=== PATIENT | male | born 1945 ===

== ENCOUNTER → 2018-08-03 | Outpatient (CLI) | payer MEDICARE, OTHER ==
[2018-08-03 14:34] LABS: Basophils # (auto) 0.1 uL; Basophils % (auto) 0.8 % (0.0-2.0); Eosinophils # (auto) 0.2 uL; Eosinophils % (auto) 3.3 % (0.0-7.0); Hematocrit 36.8 % (41.0-53.0); Hemoglobin 12.8 g/dL (13.5-17.5); Lymphocytes # (auto) 1.9 uL; Lymphocytes % (auto) 26.9 % (10.0-50.0); Mean Corpuscular Hemoglobin 33.6 pg (28.0-32.0); Mean Corpuscular Hgb Conc. 34.9 g/dL (32.0-36.0); Mean Corpuscular Volume 96.5 fL (80.0-100.0); Monocytes # (auto) 0.6 uL; Monocytes % (auto) 7.8 % (0.0-12.0); Neutrophils # (auto) 4.4 uL; Neutrophils % (auto) 61.2 % (37.0-80.0); Platelet Count (auto) 241 10^3/uL (140-450); Red Blood Cells 3.82 10^6/uL (4.5-5.90); Red Cell Distribution Width 13.5 % (11.8-14.3); White Blood Cell 7.2 10^3/uL (4.4-10.8)
[2018-08-03 14:36] LABS: Urine Bacteria NONE SEEN /hpf (None Seen); Urine Blood Negative /uL (Negative); Urine Mucus FEW (None Seen); Urine Specific Gravity 1.014 (1.001-1.035); Urine WBC 5 /hpf (0 - 3)
[2018-08-03 14:54] LABS: Albumin 3.3 g/dL (3.4-5.0); BUN/Creatinine Ratio 12.6; Calcium 7.4 mg/dL (8.5-10.1); Potassium 4.1 mmol/L (3.5-5.1)
[2018-08-03 14:56] LABS: Bilirubin, Total 0.4 mg/dL (0.2-1.0); Total Protein 6.8 g/dL (6.4-8.2)
== END | disposition home or self-care (01) ==
LOC: LAB 13:53
PROVIDERS: ATTEND Internal Medicine
DX: Z00.01 Encounter for general adult medical examination with abnormal findings (principal); R53.83 Other fatigue; E11.40 Type 2 diabetes mellitus with diabetic neuropathy, unspecified; R63.4 Abnormal weight loss; F17.200 Nicotine dependence, unspecified, uncomplicated
CPT/HCPCS: 36415; 80053; 81001; 82150; 83036; 83690; 85025; 85652

== ENCOUNTER 2024-11-11 13:55 | Inpatient (IN) | payer MEDICARE, OTHER ==
[~2024-11-11] VITALS: Ht 170.2 cm; Wt 65.8 kg
[~2024-11-11 13:55] MED LIST: FINA5TAB4 PO; FLUT50SP31 EACHNOSTRI; FURO40TA4 PO; GABA-1251 PO; INSLANTI SC; TERA5CAP58 PO; [UNRECOGNIZED DRUG - CODE] PO
--- NOTE | 2024-11-11 14:06 | ED.PDOC ---
History of Present Illness HPI Comments A 79 year old male brought in by EMS presents to the ED with a chief complaint of increased falls onset 2 days. Patient states he noticed increased falls these past few days, today he felt "jolt" that dropped him to his knees as well as "jolts" through bilateral arms. Patient is also experiencing dizziness. He states he recently had an a change in Gabapentin medication. Past medical history of DM, seizures. Denies chest pain, shortness of breath, nausea, vomiting, diarrhea, abdominal pain, headache. No other symptoms or modifying factors present at this time. Time Seen by MD: 13:54 Reviewed Notes: Medications, Allergies Information Source: Patient, Emergency Med Personnel Mode of Arrival: EMS Severity: Moderate Timing: Hours Duration: Since onset Prehospital treatment: 12 Lead EKG Past Medical History PAST MEDICAL HISTORY: DM, Seizures Surgical History: Pacemaker Family History Family History: Unknown Social History Smoker: Non-Smoker Alcohol: Denies ETOH Use Drugs: Denies Drug Use Lives In: Home Constitutional: denies: chills, diaphoresis, fatigue, fever, malaise, sweats, weakness, others EENTM: denies: blurred vision, double vision, ear bleeding, ear discharge, ear drainage, ear pain, ear ringing, eye pain, eye redness, hearing loss, mouth pain, mouth swelling, nasal discharge, nose bleeding, nose congestion, nose pain, photophobia, tearing, throat pain, throat swelling, voice changes, others Respiratory: denies: cough, hemoptysis, orthopnea, SOB at rest, shortness of breath, SOB with excertion, stridor, wheezing, others Cardiovascular: denies: chest pain, dizzy spells, diaphoresis, Dyspnea on exertion, edema, irregular heart beat, left arm pain, lightheadedness, palpitations, PND, syncope, others Gastrointestinal: denies: abdomen distended, abdominal pain, blood streaked bowels, constipated, diarrhea, dysphagia, difficulty swallowing, hematemesis, melena, nausea, poor appetite, poor fluid intake, rectal bleeding, rectal pain, vomiting, others Genitourinary: denies: burning, dysuria, flank pain, frequency, hematuria, incontinence, penile discharge, penile sore, pain, testicle pain, testicle swelling, urgency, others Neurological: denies: dizziness, fainting, headache, left sided numbness, left sided weakness, numbness, paresthesia, pre-existing deficit, right sided numbness, right sided weakness, seizure, speech problems, tingling, tremors, weakness, others Musculoskeletal: denies: back pain, gout, joint pain, joint swelling, muscle pain, muscle stiffness, neck pain, others Integumetry: denies: bruises, change in color, change in hair/nails, dryness, laceration, lesions, lumps, rash, wounds, others Allergic/Immunocompromised: denies: Difficulty Healing, Frequent Infections, Hives, Itching, others Hematologic/Lymphatic: denies: anemia, blood clots, easy bleeding, easy bruising, swollen glands, others Endocrine: denies: excessive hunger, excessive sweating, excessive thirst, excessive urination, flushing, intolerance to cold, intolerance to heat, unexp lained weight gain, unexplained weight loss, others Psychiatric: denies: anxiety, bipolar disorder, depression, hopeless, panic disorder, schizophrenia, sleepless, suicidal, others All Other Systems: Reviewed and Negative Physical Exam General Appearance: No Apparent Distress, Normal HEENT: Normal ENT Inspection, Pharynx Normal, TMs Normal Neck: Full Range of Motion, Non-Tender, Normal, Normal Inspection Respiratory: Chest Non-Tender, Lungs Clear, No Accessory Muscle Use, No Respiratory Distress, Normal Breath Sounds Cardiovascular: No Edema, No JVD, No Murmur, No Gallop, Normal Peripheral Pulse s, Other (paced rhythm) Breast Exam: Deferred Gastrointestinal: No Organomegaly, Non Tender, No Pulsatile Mass, Normal Bowel Sounds, Soft Genitalia: Deferred Pelvic: Deferred Rectal: Deferred Extremities: No calf tenderness, Normal capillary refill, Normal inspection, Normal range of motion, Non-tender, No pedal edema Musculoskeletal : Apperance: Normal Neurologic: Alert, advertising campaign manager II-XII nml as Tested, No Motor Deficits, Normal Affect, Normal Mood, No Sensory Deficits Cerebellar Function: Normal Reflexes: Normal Skin: Dry, Normal Color, Warm Lymphatic: No Adenopathy Was a procedure done? Was a procedure done?: No Differential Dx Considerations may include: Electrolyte abnormalities, infectious etiology, medication reaction X-Ray, Labs, Meds, VS Vital Signs Date Time Temp Pulse Resp B/P (MAP) Pulse Ox O2 Delivery O2 Flow Rate FiO2 11/11/24 18:03 60 14 127/73 (91) 96 11/11/24 16:00 60 13 137/67 (90) 99 11/11/24 14:50 60 11/11/24 14:39 97.6 60 12 110/59 (76) 94 97.6 11/11/24 14:39 60 12 94 Room Air* 0 21 11/11/24 14:10 98.0 60 18 126/63 (84) 98 11/11/24 13:58 70 Lab Test 11/11/24 17:39 11/11/24 15:15 11/11/24 15:05 11/11/24 14:02 Range/Units Troponin I High Sensitivity Pending 9 10 </=54 ng/L Urine Color Colorless Yellow Urine Clarity Clear Clear Urine pH 6.5 5.0-9.0 Urine Specific [place] 1.005 1.001-1.035 Urine Protein Negative Negative Urine Ketones Negative Negative Urine Blood Negative Negative /uL Urine Nitrite Negative Negative Urine Bilirubin Negative Negative Urine Urobilinogen Normal Negative mg/dL Urine Leukocyte Esterase Negative Negative /uL Urine RBC <1 0 - 3 /hpf Urine WBC <1 0 - 3 /hpf Urine Squamous Epithelial Cells None seen <5 /hpf Urine Bacteria None seen None Seen /hpf Urine Glucose Normal Normal mg/dL White Blood Count 3.1 L 4.4-10.8 10^3/uL Red Blood Count 2.96 L 4.5-5.90 10^6/uL Hemoglobin 9.5 L 13.5-17.5 g/dL Hematocrit 28.6 L 41.0-53.0 % Mean Corpuscular Volume 96.5 80.0-100.0 fL Mean Corpuscular Hemoglobin 32.0 28.0-32.0 pg Mean Corpuscular Hemoglobin Concent 33.2 32.0-36.0 g/dL Red Cell Distribution Width 14.0 11.8-14.3 % Platelet Count 168 140-450 10^3/uL Mean Platelet Volume 8.0 6.9-10.8 fL Neutrophils (%) (Auto) 47.0 37.0-80.0 % Lymphocytes (%) (Auto) 36.7 10.0-50.0 % Monocytes (%) (Auto) 9.8 0.0-12.0 % Eosinophils (%) (Auto) 5.2 0.0-7.0 % Basophils (%) (Auto) 1.3 0.0-2.0 % Neutrophils # (Auto) 1.5 L 1.6-8.6 10 ^3/uL Lymphocytes # (Auto) 1.1 0.4-5.4 10 ^3/uL Monocytes # (Auto) 0.3 0-1.3 10 ^3/uL Eosinophils # (Auto) 0.2 0-0.8 10 ^3/uL Basophils # (Auto) 0 0-0.2 10 ^3/uL Nucleated Red Blood Cells 0.2 % Sodium Level 139 136-145 mmol/L Potassium Level 4.2 3.5-5.1 mmol/L Chloride Level 100 98-107 mmol/L Carbon Dioxide Level 33 H 20-31 mmol/L Anion Gap 6 5-15 Blood Urea Nitrogen 22 9-23 mg/dL Creatinine 2.33 H 0.700-1.30 mg/dL Glomerular Filtration Rate Calc 27 >90 mL/min BUN/Creatinine Ratio 9.4 L 10.0-20.0 Serum Glucose 191 H 74-106 mg/dL Calcium Level 8.6 L 8.7-10.4 mg/dL B-Type Natriuretic Peptide 809.77 0-100 pg/mL [place] [id number] Ph: [phone] DIAGNOSTIC IMAGING Diagnostic Imaging Report : [id number] Signed PATIENT: ARNALDO ALBRECHT ACCT: [id number] UNIT: [id number] : 1945 LOC: ER ROOM / BED: / AGE / SEX: 79 / M ADM STATUS: REG ER SERVICE [id number] ORDERING PHYSICIAN: ROGER BILLINGSLEY MD PROCEDURE(s): CXRP - CHEST PORTABLE REASON: spasms ORDER NUMBER(s): [id number], ACCESSION NUMBER(s): [id number] EXAM: XY CHEST PORTABLE TECHNIQUE: Single frontal chest radiograph CLINICAL HISTORY: spasms COMPARISON: None Findings/Impression: Frontal chest radiograph demonstrates no acute osseous or superficial soft tissue abnormalities. Left chest wall dual chamber pacemaker. The trachea is midline. Cardiomegaly. No pneumothorax, pleural effusions, or consolidations. ATED BY: SUZAN SLADE DO DICTATED DATE/TIME: 11/11/241520 SIGNED BY: SUZAN SLADE DO SIGNED DATE/TIME: 11/11/241520 CC: Time of 1ST Reevaluation: 14:24 Reevaluation 1ST: Unchanged Patient Education/Counseling: Diagnosis, Treatment, Prognosis Family Education/Counseling: No Family Present Additional Information The following tests were ordered, and results were reviewed by me: BNP, BMP, CBC, TROP, TROP, TROP, UA, XY CHEST, EKG, EKG, EKG I reviewed and agreed with the following test results read by other providers: XY CHEST Independent Historian: EMS I discussed treatment and results with medical personnel, patient Departure 1 Departure Time of Disposition: 18:26 (Patient with a worsening falls and weakness. Unclear etiology. We will admit patient for further workup) Impression: Primary Impression: Frequent falls Disposition: ADMITTED INPATIENT Admit to: Med Surg Condition: Serious Critical Care Note Critical Care Time?: No Stability Stability form required: No I personally scribed for ROGER BILLINGSLEY MD ([email or web address]) on 11/11/24 at 14:06. Electronically submitted by Milagro Rincon ([email or web address]). I personally scribed for ROGER BILLINGSLEY MD ([email or web address]) on 11/11/24 at 14:13. Electronically submitted by Milagro Rincon ([email or web address]). I personally scribed for ROGER BILLINGSLEY MD (NICK) on 11/11/24 at 14:25. Electronically submitted by Milagro Rincon ([email or web address]). I personally scribed for ROGER BILLINGSLEY MD ([email or web address]) on 11/11/24 at 15:59. Electronically submitted by Milagro Rincon ([email or web address]). I personally scribed for ROGER BILLINGSLEY MD ([email or web address]) on 11/11/24 at 16:58. Electronically submitted by Milagro Rincon ([email or web address]). ROGER BILLINGSLEY MD Nov 11, 2024 14:06
[2024-11-11 14:37] LABS: Basophils # (auto) 0 10 ^3/uL (0-0.2); Basophils % (auto) 1.3 % (0.0-2.0); Eosinophils # (auto) 0.2 10 ^3/uL (0-0.8); Eosinophils % (auto) 5.2 % (0.0-7.0); Hematocrit 28.6 % (41.0-53.0); Hemoglobin 9.5 g/dL (13.5-17.5); Lymphocytes # (auto) 1.1 10 ^3/uL (0.4-5.4); Lymphocytes % (auto) 36.7 % (10.0-50.0); Mean Corpuscular Hgb Conc. 33.2 g/dL (32.0-36.0); Mean Corpuscular Volume 96.5 fL (80.0-100.0); Monocytes # (auto) 0.3 10 ^3/uL (0-1.3); Monocytes % (auto) 9.8 % (0.0-12.0); Neutrophils # (auto) 1.5 10 ^3/uL (1.6-8.6); Nucleated Red Blood Cells % 0.2 %; Platelet Count (auto) 168 10^3/uL (140-450); Red Blood Cells 2.96 10^6/uL (4.5-5.90); White Blood Cell 3.1 10^3/uL (4.4-10.8)
[2024-11-11 14:39] VITALS: PULSE 60; RESP 12; O2SAT 94
[2024-11-11 14:48] LABS: Chloride 100 mmol/L (98-107); Potassium 4.2 mmol/L (3.5-5.1); Sodium 139 mmol/L (136-145)
[2024-11-11 14:49] LABS: Anion Gap 6 (5-15)
[2024-11-11 14:54] LABS: BUN/Creatinine Ratio 9.4 (10.0-20.0); Blood Urea Nitrogen 22 mg/dL (9-23)
[2024-11-11 15:06] LABS: Calcium 8.6 mg/dL (8.7-10.4); Carbon Dioxide 33 mmol/L (20-31); Glucose 191 mg/dL (74-106)
--- NOTE | 2024-11-11 15:23 | DVH ---
EXAM: XY CHEST PORTABLE TECHNIQUE: Single frontal chest radiograph CLINICAL HISTORY: spasms COMPARISON: None Findings/Impression: Frontal chest radiograph demonstrates no acute osseous or superficial soft tissue abnormalities. Left chest wall dual chamber pacemaker. The trachea is midline. Cardiomegaly. No pneumothorax, pleural effusions, or consolidations.
[2024-11-11 15:28] LABS: Urine Bacteria None Seen /hpf (None Seen)
[2024-11-11 15:41] LABS: Urine Blood Negative /uL (Negative); Urine Clarity Clear (Clear); Urine Color Colorless (Yellow); Urine Protein, UAD Negative (Negative); Urine Specific Gravity 1.005 (1.001-1.035); Urine Urobilinogen Normal (Negative); Urine WBC <1 /hpf (0 - 3); Urine pH 6.5 (5.0-9.0)
--- NOTE | 2024-11-11 18:51 | ECG ---
[facility] Test Date: 2024-11-11 Test Time: 13:57:40 Pat Name: ARNALDO ALBRECHT Department: ER Room: 0279T Gender: M Boat Tender: STACI : 1945 Requested By: ROGER BILLINGSLEY Order Number: [id number] Reading MD: Wilbur Murrell Measurements Intervals [place] Rate: 70 P: 0 IN: 207 QRS: 44 QRSD: 171 T: 212 QT: 519 QTc: 561 Interpretive Statements Atrial-paced rhythm IVCD, consider atypical LBBB Electronically Signed On 11-14-2024 13:04:49 PST by Wilbur Murrell Please click the below link to view image of tracing.
--- NOTE | 2024-11-11 18:51 | ECG ---
[facility] Test Date: 2024-11-11 Test Time: 14:46:38 Pat Name: ARNALDO ALBRECHT Department: ED Room: 0279T Gender: M Fur Puller: HARIS : 1945 Requested By: ROGER BILLINGSLEY Order Number: [id number] Reading MD: Wilbur Murrell Measurements Intervals [place] Rate: 60 P: 0 LA: 262 QRS: -48 QRSD: 179 T: 130 QT: 537 QTc: 537 Interpretive Statements Atrial-paced complexes Prolonged LA interval Left bundle branch block Baseline wander in lead(s) V1 Electronically Signed On 11-14-2024 13:04:56 PST by Wilbur Murrell Please click the below link to view image of tracing.
[2024-11-11] MEDS ORDERED: DEXTROSE (50%) 50ML SYRG IV PRN (20:00)
[2024-11-11] MEDS ORDERED: HYDROcodone-ACET 5/325MG TAB PO PRN (20:00)
[2024-11-11] MEDS ORDERED: ONDANSETRON HCL 4 MG/2 ML VIAL IV PRN (20:00)
[2024-11-11] MEDS ORDERED: DOCUSATE SOD 100 MG CAP PO PRN (20:00)
[2024-11-11] MEDS ORDERED: hydrALAZINE HCL 20 MG/ML VL IV PRN (20:00)
[2024-11-11] MEDS ORDERED: ACETAMINOPHEN 325 MG TAB PO PRN (20:00)
[2024-11-11 20:51] VITALS: PULSE 60; O2SAT 97
[2024-11-11] MEDS: ATORVASTATIN 20 MG TAB PO SCH (21:31)
[2024-11-11] MEDS: SODIUM CHLORIDE 0.9% 1,000 ML IV SCH (21:34)
[2024-11-11] MEDS: InsuLIN REG 1unit/0.01ml Soln (100units/ml) SC SCH (22:00)
[2024-11-11] MEDS: ACCU-CHEK COMFORT CURVE STRIP VI SCH (22:17)
--- NOTE | 2024-11-11 22:21 | DVHHP2 ---
History of Present Illness Reason for Visit: Generalized weakness History of Present Illness The patient is a 79-year-old male with past medical history of diabetes mellitus, HLD, and seizure who [place] [facility] [place] of frequent fall at home. Patient reports increased fall for the past few days, generalized weakness, dropping things from his arms without control, getting worse that he decided to come to the ED. patient was seen and evaluated in the ED, laboratory data shows WBC 3.1, hemoglobin 9.5, hematocrit 28.6, platelets 168, sodium 139, potassium 4.2, BUN 22, creatinine 2.33, GFR 27, glucose 191, troponin 10, blood pressure 127/73, heart rate 60, temperature 97.6 F, O2 saturation 96% on room air. Please see medication orders section in the computer. On my assessment, patient denied chest pain, no headache, no dizziness, no loss of consciousness, no diarrhea, no nausea, no vomiting, no fever, no chills. Patient was admitted for further evaluation and medical management. Past Medical History DM, HLD, Seizures Past Surgical History Pacemaker Family History Reviewed, noncontributory to the management of this case. Past Social History The patient lives at home, denies smoking, alcohol or illicit drugs abuse. Review of Systems Constitutional: Yes: Weakness; No: Fever, Chills, Sweats, Malaise, Other Eyes: No: Pain, Vision change, Conjunctivae inflammation, Eyelid inflammation, Other, Redness ENT: No: Ear pain, Ear discharge, Nose pain, Nose discharge, Nose congestion, Mouth pain, Mouth swelling, Throat pain, Throat swelling, Other Respiratory: No: Cough, Dry, Shortness of breath, SOB with excertion, Wheezing, Hemoptysis, Pleuritic Pain, Sputum, Wheezing, Other Cardiovascular: No: Chest Pain, Palpitations, Orthopnea, Paroxysmal Noc. Dyspnea, Edema, Lt Headedness, Other Gastrointestinal: No: Nausea, Vomiting, Abdominal Pain, Diarrhea, Constipation, Melena, Hematochezia, Other Genitourinary: No Dysuria, No Frequency, No Incontinence, No Hematuria, No Retention, No Other Musculoskeletal: other (Joint to weakness); No: neck pain, shoulder pain, arm pain, back pain, hand pain, leg pain, foot pain Skin: No: Rash, Lesions, Jaundice, Bruising, Other Neurological: No: Weakness, Numbness, Incoordination, Change in speech, Confusion, Seizures, Other Allergies: Coded Allergies: Ciprofloxacin (Verified Allergy, Unknown, 11/11/24) Peanut Oil (Verified Allergy, Unknown, 11/11/24) Peanut-containing Drug Products (Verified Allergy, Unknown, 11/11/24) Medications Current Medications Medications Dose Ordered Sig/[place] Route Start Time Stop Time Status Last Admin Dose Admin Famotidine 20 mg DAILY IV 11/12/24 10:00 Aspirin 81 mg DAILY PO 11/12/24 10:00 Diagnostic Test (Pha) 1 strip ACHS 11/11/24 22:00 11/11/24 22:17 1 STRIP Insulin Human Regular HS SC 11/11/24 22:00 Insulin Human Regular AC SC 11/12/24 07:00 Dextrose 50 ml UD PRN IV 11/11/24 20:00 Sodium Chloride 1,000 ml @ 60 mls/hr [id number] IV 11/11/24 20:00 11/11/24 21:34 60 MLS/HR Acetaminophen/ Hydrocodone Bitart 1 tab Q4HP PRN PO 11/11/24 20:00 Ondansetron HCl 4 mg Q4HP PRN IV 11/11/24 20:00 Docusate Sodium 100 mg BIDPRN PRN PO 11/11/24 20:00 Acetaminophen 650 mg Q6HP PRN PO 11/11/24 20:00 Hydralazine HCl 10 mg Q6HP PRN IV 11/11/24 20:00 Atorvastatin Calcium 10 mg HS PO 11/11/24 22:00 Exam Vital Signs Vital Signs Date Time Temp Pulse Resp B/P (MAP) Pulse Ox O2 Delivery O2 Flow Rate FiO2 11/11/24 22:02 60 12 149/89 (109) 97 11/11/24 20:51 Room Air* 0 21 11/11/24 19:30 97.6 97.6 General Appearance: Alert, Oriented X3, Cooperative, No acute distress HEENT: Atraumatic, PERRLA, EOMI, Mucous membr. moist/pink Respiratory: Clear to auscultation, Normal air movement Cardiovascular: Regular rate, Normal S1, Normal S2, No murmurs Abdominal: Normal bowel sounds, Soft, No tenderness, No hepatospenomegaly, No masses Extremities: No clubbing, No cyanosis, No edema, Normal pulses, No tenderness/swelling Skin: No rashes, No breakdown, No significant lesion Neuro: Normal speech, Normal tone, Sensation intact, Cranial nerves 3-12 NL, Reflexes 2+, Other (Generalized weakness) Psych/Mental Status: Mental status NL, Mood NL Labs/Xrays Labs Test 11/11/24 21:43 11/11/24 17:39 11/11/24 15:15 11/11/24 14:02 Range/Units POC Glucose 96 70-106 mg/dl Troponin I High Sensitivity 10 </=54 ng/L Urine Color Colorless Yellow Urine Clarity Clear Clear Urine pH 6.5 5.0-9.0 Urine Specific [place] 1.005 1.001-1.035 Urine Protein Negative Negative Urine Ketones Negative Negative Urine Blood Negative Negative /uL Urine Nitrite Negative Negative Urine Bilirubin Negative Negative Urine Urobilinogen Normal Negative mg/dL Urine Leukocyte Esterase Negative Negative /uL Urine RBC <1 0 - 3 /hpf Urine WBC <1 0 - 3 /hpf Urine Squamous Epithelial Cells None seen <5 /hpf Urine Bacteria None seen None Seen /hpf Urine Glucose Normal Normal mg/dL White Blood Count 3.1 L 4.4-10.8 10^3/uL Red Blood Count 2.96 L 4.5-5.90 10^6/uL Hemoglobin 9.5 L 13.5-17.5 g/dL Hematocrit 28.6 L 41.0-53.0 % Mean Corpuscular Volume 96.5 80.0-100.0 fL Mean Corpuscular Hemoglobin 32.0 28.0-32.0 pg Mean Corpuscular Hemoglobin Concent 33.2 32.0-36.0 g/dL Red Cell Distribution Width 14.0 11.8-14.3 % Platelet Count 168 140-450 10^3/uL Mean Platelet Volume 8.0 6.9-10.8 fL Neutrophils (%) (Auto) 47.0 37.0-80.0 % Lymphocytes (%) (Auto) 36.7 10.0-50.0 % Monocytes (%) (Auto) 9.8 0.0-12.0 % Eosinophils (%) (Auto) 5.2 0.0-7.0 % Basophils (%) (Auto) 1.3 0.0-2.0 % Neutrophils # (Auto) 1.5 L 1.6-8.6 10 ^3/uL Lymphocytes # (Auto) 1.1 0.4-5.4 10 ^3/uL Monocytes # (Auto) 0.3 0-1.3 10 ^3/uL Eosinophils # (Auto) 0.2 0-0.8 10 ^3/uL Basophils # (Auto) 0 0-0.2 10 ^3/uL Nucleated Red Blood Cells 0.2 % Sodium Level 139 136-145 mmol/L Potassium Level 4.2 3.5-5.1 mmol/L Chloride Level 100 98-107 mmol/L Carbon Dioxide Level 33 H 20-31 mmol/L Anion Gap 6 5-15 Blood Urea Nitrogen 22 9-23 mg/dL Creatinine 2.33 H 0.700-1.30 mg/dL Glomerular Filtration Rate Calc 27 >90 mL/min BUN/Creatinine Ratio 9.4 L 10.0-20.0 Serum Glucose 191 H 74-106 mg/dL Calcium Level 8.6 L 8.7-10.4 mg/dL B-Type Natriuretic Peptide 809.77 0-100 pg/mL PATIENT: ARNALDO ALBRECHT ACCT: [id number] UNIT: [id number] : 1945 LOC: ER ROOM / BED: / AGE / SEX: 79 / M ADM STATUS: REG ER SERVICE 5000 ORDERING PHYSICIAN: ROGER BILLINGSLEY MD PROCEDURE(s): CXRP - CHEST PORTABLE REASON: spasms ORDER NUMBER(s): [id number], ACCESSION NUMBER(s): [id number] EXAM: XY CHEST PORTABLE TECHNIQUE: Single frontal chest radiograph CLINICAL HISTORY: spasms COMPARISON: None Findings/Impression: Frontal chest radiograph demonstrates no acute osseous or superficial soft tissue abnormalities. Left chest wall dual chamber pacemaker. The trachea is midline. Cardiomegaly. No pneumothorax, pleural effusions, or consolidations. Assessment/Plan Assessment/Plan Frequent falls Acute on chronic renal failure Anemia, unspecified Diabetes mellitus with hyperglycemia Generalized weakness Plan 1. Admit to telemetry unit 2. Breathing treatment 3. Pain control management 4. Management of fluids and electrolytes 5. Consultation for hospitalist 6. Diagnostic tests chest x-ray 7. DVT prophylaxis on SCDs 8. Repeat labs CBC, CMP in a.m. 9. Continue with current medical management 10. Treatment plan discussed with patient and RN. Patient verbalized understanding. Plan discussed with: Patient, Other (RN) My Orders Orders - LINCOLN CUNNINGHAM DNP Procedure Category Date Status Time Consistent DIET 11/12/24 Transmitted Carb(Ccho)Diabetes Breakfast Famotidine Injection PHA 11/12/24 In Process (Pepcid Injection) 10:00 Aspirin Tablet PHA 11/12/24 In Process 10:00 *Dr. Keshawn Donnelly CONS 11/11/24 Transmitted -[place] 19:55 Glucose Blood PHA 11/11/24 In Process (Accu-Chek Comfort 22:00 Insulin R (Human) PHA 11/11/24 In Process (Insulin R) 22:00 Insulin R (Human) PHA 11/12/24 In Process (Insulin R) 07:00 Dextrose 50% Syringe PHA 11/11/24 In Process 20:00 Allergies FRANCOISE 11/11/24 In Process 19:55 Code Status CODE 11/11/24 Transmitted 19:55 Sodium Chloride 0.9% PHA 11/11/24 In Process 20:00 Oxygen Per Hour RT 11/11/24 Transmitted 19:55 Hydrocodone-Acet PHA 11/11/24 In Process 5/325mg Tab ([place] 20:00 Ondansetron Hcl PHA 11/11/24 In Process (Zofran) 20:00 Docusate Sodium PHA 11/11/24 In Process Capsule (Colace 20:00 Fall Risk Precautions FRANCOISE 11/11/[address] 19:55 Complete Blood Count LAB 11/12/24 Verified 04:00 Comprehensive LAB 11/12/24 Verified Metabolic Panel 04:00 Condition: Serious FRANCOISE 11/11/24 In Process 19:55 Acetaminophen Tablet PHA 11/11/24 In Process (Tylenol Tablet) 20:00 Sequential FRANCOISE 11/11/24 In Process Compression Device Hydralazine Injection PHA 11/11/24 In Process (Apresoline Inject 20:00 Atorvastatin (Lipitor) PHA 11/11/24 In Process 22:00 Admit ADMIT 11/11/24 Verified 22:20 Nitroglycerin PHA 11/11/24 Verified Sublingual (Ntrostat 22:30 Morphine Sulfate PHA 11/11/24 Verified Injection 22:30 Notify Of Changes [facility] 11/11/24 Verified From Base 22:20 Polysomnographic Technician For [facility] 11/11/24 Verified 24 Hours 22:20 Emergency Dysrhythmia FRANCOISE 11/11/24 Verified Protocol 22:20 Rhythm Strips Once FRANCOISE 11/11/24 Verified Every Shift 22:20 Oxygen By Nasal RT 11/11/24 Verified Cannula 22:20 Problem List: (1) Frequent falls (2) Generalized weakness (3) Acute on chronic renal failure (4) Anemia, unspecified (5) Diabetes mellitus with hyperglycemia Date of Service: Nov 11, 2024 Billing Provider: LINCOLN CUNNINGHAM DNP Common Visit Codes: 38000-[id number] INP/OBS CARE (HIGH) LINCOLN CUNNINGHAM DNP Nov 11, 2024 22:21
[2024-11-11] MEDS ORDERED: NITROGLYCERIN 0.4 MG SL TAB SL PRN (22:30)
[2024-11-11] MEDS ORDERED: MORPHINE SULFATE INJ 2 MG/ml SYRG IV PRN (22:30)
[2024-11-11 23:52] VITALS: PULSE 60; RESP 16; O2SAT 95
[2024-11-12] VITALS (8 sets, daily range): BP systolic 112–150; BP diastolic 63–96; PULSE 58–60; RESP 16–18; TEMP 97.8–98.2; O2SAT 93–99
[2024-11-12] MEDS: InsuLIN REG 1unit/0.01ml Soln (100units/ml) SC SCH (05:18)
[2024-11-12 05:45] LABS: Basophils # (auto) 0 10 ^3/uL (0-0.2); Basophils % (auto) 1.1 % (0.0-2.0); Eosinophils # (auto) 0.2 10 ^3/uL (0-0.8); Eosinophils % (auto) 4.5 % (0.0-7.0); Hematocrit 30.6 % (41.0-53.0); Hemoglobin 10.2 g/dL (13.5-17.5); Lymphocytes # (auto) 1.3 10 ^3/uL (0.4-5.4); Lymphocytes % (auto) 33.4 % (10.0-50.0); Mean Corpuscular Hemoglobin 32.1 pg (28.0-32.0); Mean Corpuscular Hgb Conc. 33.3 g/dL (32.0-36.0); Mean Corpuscular Volume 96.3 fL (80.0-100.0); Monocytes # (auto) 0.5 10 ^3/uL (0-1.3); Monocytes % (auto) 11.5 % (0.0-12.0); Neutrophils % (auto) 49.5 % (37.0-80.0); Nucleated Red Blood Cells % 0.2 %; Platelet Count (auto) 166 10^3/uL (140-450); Red Blood Cells 3.17 10^6/uL (4.5-5.90); Red Cell Distribution Width 14.1 % (11.8-14.3)
[2024-11-12 06:09] LABS: Alanine Aminotransferase 15 U/L (7-40); Albumin 3.8 g/dL (3.2-4.8); Alkaline Phosphatase 103 U/L (46-116); Anion Gap 7 (5-15); Aspartate Aminotransferase 22 U/L (13-40); BUN/Creatinine Ratio 8.6 (10.0-20.0); Bilirubin, Total 0.4 mg/dL (0.2-1.0); Blood Urea Nitrogen 19 mg/dL (9-23); Carbon Dioxide 31 mmol/L (20-31); Chloride 105 mmol/L (98-107); Glucose 86 mg/dL (74-106); Potassium 4.1 mmol/L (3.5-5.1); Sodium 143 mmol/L (136-145); Total Protein 6.4 g/dL (5.7-8.2)
[2024-11-12] MEDS: ASPirin 81 mg TAB PO SCH (09:06)
[2024-11-12] MEDS: FAMOTIDINE (10MG/ML) 2ML VL IV SCH (09:06)
--- NOTE | 2024-11-12 10:23 | DVHINCON2 ---
Date of service: Nov 12, 2024 Referring Physician Florentin Stewart, nurse practitioner Reason for Consultation Acute kidney injury History of Present Illness Patient is a 79-year-old male with past medical history of DM, osteoarthritis, chronic low back pain and seizures Seizures is admitted for generalized weakness status post fall three days ago. On admission patient found to have elevated creatinine nephrology is consulted for acute kidney injury Past Medical History PAST MEDICAL HISTORY: DM, Seizures, osteoarthritis, chronic low back pain Past Surgical History Surgical History: Pacemaker Allergies: Coded Allergies: Ciprofloxacin (Verified Allergy, Unknown, 11/11/24) Peanut Oil (Verified Allergy, Unknown, 11/11/24) Peanut-containing Drug Products (Verified Allergy, Unknown, 11/11/24) Current Medications Current Medications Medications (Trade) Dose Ordered Sig/Lisbet Route PRN Reason Start Time Stop Time Status Last Admin Famotidine (Pepcid Injection) 20 mg DAILY IV 11/12/24 10:00 11/12/24 09:06 Aspirin 81 mg DAILY PO 11/12/24 10:00 11/12/24 09:06 Diagnostic Test (Pha) (Accu-Chek Comfort Curve T) 1 strip ACHS 11/11/24 22:00 11/12/24 12:19 DC 11/12/24 05:18 Insulin Human Regular (InsuLIN R) HS SC 11/11/24 22:00 11/12/24 12:19 DC Insulin Human Regular (InsuLIN R) AC SC 11/12/24 07:00 11/12/24 12:19 DC Dextrose 50 ml UD PRN IV Blood Sugar LESS THAN 60 11/11/24 20:00 Sodium Chloride 1,000 ml @ 60 mls/hr [id number] IV 11/11/24 20:00 11/11/24 21:34 Acetaminophen/ Hydrocodone Bitart ([place] 5/325MG Tab) 1 tab Q4HP PRN PO MODERATE PAIN (4-6 PAIN SCALE) 11/11/24 20:00 Ondansetron HCl (Zofran) 4 mg Q4HP PRN IV NAUSEA / VOMITING 11/11/24 20:00 Docusate Sodium (Colace Capsule) 100 mg BIDPRN PRN PO FOR CONSTIPATION 11/11/24 20:00 Acetaminophen (Tylenol Tablet) 650 mg Q6HP PRN PO PAIN SCALE 1-3 OR TEMP>100.4 11/11/24 20:00 Hydralazine HCl (Apresoline Injection) 10 mg Q6HP PRN IV SBP>150 11/11/24 20:00 Atorvastatin Calcium (Lipitor) 10 mg HS PO 11/11/24 22:00 Nitroglycerin (Ntrostat Sublingual) 0.4 mg Q5MINP PRN SL FOR CHEST PAIN 11/11/24 22:30 Morphine Sulfate 2 mg Q30M PRN IV FOR CHEST PAIN 11/11/24 22:30 Family History: FH: heart attack G8 FATHER, , Age: 60 years and older Review of Systems All 12 item review of systems reviewed with the patient nonsignificant except what is mentioned in the history of present illness H&P Exam Vital Signs/I&O Vital Sign Date Time Temp Pulse Resp B/P (MAP) Pulse Ox O2 Delivery O2 Flow Rate FiO2 11/12/24 09:00 98.0 60 18 135/63 (87) 94 98.0 11/12/24 07:45 Room Air* 0 21 Intake and Output 11/11/24 11/12/24 19:00 07:00 Intake Total 200 ml Output Total 1400 ml Balance -1200 ml Intake Oral 200 ml Output Urine Total 1400 ml Physical Exam Patient is awake alert Lungs clear to auscultation bilaterally Cardiac exam regular rate and rhythm GI soft nontender was normal Extremities no clubbing cyanosis or edema Neuro nonfocal Labs/Diagnostic Data Labs/Diagnostic Data Laboratory Tests Test 11/12/24 11:17 11/12/24 05:16 11/12/24 04:39 11/11/24 21:43 Range/Units Prothrombin Time 11.5 9.3-11.8 sec Prothrombin Time INR 1.09 0.9-1.15 POC Glucose 84 96 70-106 mg/dl White Blood Count 4.0 #L 4.4-10.8 10^3/uL Red Blood Count 3.17 L 4.5-5.90 10^6/uL Hemoglobin 10.2 L 13.5-17.5 g/dL Hematocrit 30.6 L 41.0-53.0 % Mean Corpuscular Volume 96.3 80.0-100.0 fL Mean Corpuscular Hemoglobin 32.1 H 28.0-32.0 pg Mean Corpuscular Hemoglobin Concent 33.3 32.0-36.0 g/dL Red Cell Distribution Width 14.1 11.8-14.3 % Platelet Count 166 140-450 10^3/uL Mean Platelet Volume 8.2 6.9-10.8 fL Neutrophils (%) (Auto) 49.5 37.0-80.0 % Lymphocytes (%) (Auto) 33.4 10.0-50.0 % Monocytes (%) (Auto) 11.5 0.0-12.0 % Eosinophils (%) (Auto) 4.5 0.0-7.0 % Basophils (%) (Auto) 1.1 0.0-2.0 % Neutrophils # (Auto) 2.0 1.6-8.6 10 ^3/uL Lymphocytes # (Auto) 1.3 0.4-5.4 10 ^3/uL Monocytes # (Auto) 0.5 0-1.3 10 ^3/uL Eosinophils # (Auto) 0.2 0-0.8 10 ^3/uL Basophils # (Auto) 0 0-0.2 10 ^3/uL Nucleated Red Blood Cells 0.2 % Sodium Level 143 136-145 mmol/L Potassium Level 4.1 3.5-5.1 mmol/L Chloride Level 105 98-107 mmol/L Carbon Dioxide Level 31 20-31 mmol/L Anion Gap 7 5-15 Blood Urea Nitrogen 19 9-23 mg/dL Creatinine 2.22 H 0.700-1.30 mg/dL Glomerular Filtration Rate Calc 29 >90 mL/min BUN/Creatinine Ratio 8.6 L 10.0-20.0 Serum Glucose 86 # 74-106 mg/dL Hemoglobin A1c 8.6 H <5.7 % A1C Calcium Level 9.0 8.7-10.4 mg/dL Phosphorus Level 4.2 2.4-5.1 mg/dL Magnesium Level 2.3 1.6-2.6 mg/dL Total Bilirubin 0.4 0.2-1.0 mg/dL Aspartate Amino Transferase (AST) 22 13-40 U/L Alanine Aminotransferase (ALT) 15 7-40 U/L Alkaline Phosphatase 103 46-116 U/L Creatine Kinase 51 46-171 U/L Total Protein 6.4 5.7-8.2 g/dL Albumin 3.8 3.2-4.8 g/dL Thyroid Stimulating Hormone (TSH) 0.65 0.55-4.78 uIU/mL Test 11/11/24 18:39 11/11/24 17:39 11/11/24 15:15 11/11/24 15:05 Range/Units POC Glucose 209 H 70-106 mg/dl Troponin I High Sensitivity 10 9 </=54 ng/L Urine Color Colorless Yellow Urine Clarity Clear Clear Urine pH 6.5 5.0-9.0 Urine Specific [place] 1.005 1.001-1.035 Urine Protein Negative Negative Urine Ketones Negative Negative Urine Blood Negative Negative /uL Urine Nitrite Negative Negative Urine Bilirubin Negative Negative Urine Urobilinogen Normal Negative mg/dL Urine Leukocyte Esterase Negative Negative /uL Urine RBC <1 0 - 3 /hpf Urine WBC <1 0 - 3 /hpf Urine Squamous Epithelial Cells None seen <5 /hpf Urine Bacteria None seen None Seen /hpf Urine Glucose Normal Normal mg/dL Test 11/11/24 14:02 Range/Units White Blood Count 3.1 L 4.4-10.8 10^3/uL Red Blood Count 2.96 L 4.5-5.90 10^6/uL Hemoglobin 9.5 L 13.5-17.5 g/dL Hematocrit 28.6 L 41.0-53.0 % Mean Corpuscular Volume 96.5 80.0-100.0 fL Mean Corpuscular Hemoglobin 32.0 28.0-32.0 pg Mean Corpuscular Hemoglobin Concent 33.2 32.0-36.0 g/dL Red Cell Distribution Width 14.0 11.8-14.3 % Platelet Count 168 140-450 10^3/uL Mean Platelet Volume 8.0 6.9-10.8 fL Neutrophils (%) (Auto) 47.0 37.0-80.0 % Lymphocytes (%) (Auto) 36.7 10.0-50.0 % Monocytes (%) (Auto) 9.8 0.0-12.0 % Eosinophils (%) (Auto) 5.2 0.0-7.0 % Basophils (%) (Auto) 1.3 0.0-2.0 % Neutrophils # (Auto) 1.5 L 1.6-8.6 10 ^3/uL Lymphocytes # (Auto) 1.1 0.4-5.4 10 ^3/uL Monocytes # (Auto) 0.3 0-1.3 10 ^3/uL Eosinophils # (Auto) 0.2 0-0.8 10 ^3/uL Basophils # (Auto) 0 0-0.2 10 ^3/uL Nucleated Red Blood Cells 0.2 % Sodium Level 139 136-145 mmol/L Potassium Level 4.2 3.5-5.1 mmol/L Chloride Level 100 98-107 mmol/L Carbon Dioxide Level 33 H 20-31 mmol/L Anion Gap 6 5-15 Blood Urea Nitrogen 22 9-23 mg/dL Creatinine 2.33 H 0.700-1.30 mg/dL Glomerular Filtration Rate Calc 27 >90 mL/min BUN/Creatinine Ratio 9.4 L 10.0-20.0 Serum Glucose 191 H 74-106 mg/dL Calcium Level 8.6 L 8.7-10.4 mg/dL Troponin I High Sensitivity 10 </=54 ng/L B-Type Natriuretic Peptide 809.77 0-100 pg/mL Assessment Acute kidney injury superimposed Chronic Kidney Disease secondary hemodynamic mediated Generalized weakness Diabetes mellitus type 2 Hypertension Seizure disorder Anemia of chronic of Kidney disease Recommendations Closely monitor fluid and electrolytes Avoid nephrotoxic medications Castro catheter Strict I&Os Check urine electrolytes Check kidney ultrasound sliding scale Blood pressure control Check CPK We will continue to follow Patient seen and examined by myself I discussed my plan of care with the patient, his fiancee and primary nurse at the bedside I would like to thank Florentin for the consult, will follow up Plan discussed with: Patient AC RESENDEZ MD Nov 12, 2024 10:22
--- NOTE | 2024-11-12 10:58 | DVH ---
CT HEAD WITHOUT CONTRAST INDICATION: ro stroke EXAM DATE: 11/12/2024 09:54 AM COMPARISON: None RADIATION DOSE: CTDIvol: 53.81 mGy, DLP: 862.75 mGy*cm PROCEDURE: CT scans of the head were obtained from the vertex to the skull base. Sagittal and coronal reconstructions were provided. All CT scans at this medical facility are performed using dose modulation techniques as appropriate t o a performed exam including the following: Automated exposure control was utilized; adjustment of th e MA and/or KV according to patient size; and use of iterative reconstruction technique. FINDINGS: There is sulcal and ventricular prominence. The brain otherwise shows normal morphology a nd montgomery-white matter differentiation, without intracranial hemorrhage, extra-axial fluid collection, mass effect or acute large vessel infarct.The basal cisterns are patent. The skull and visible facial bones are intact. The paranasal sinuses, mastoid air cells and middle ear cavities are well-aerated. The soft tissues of the scalp are unremarkable. IMPRESSION: No acute intracranial abnormality.
[2024-11-12 11:17] LABS: Phosphorus 4.2 mg/dL (2.4-5.1)
--- NOTE | 2024-11-12 11:47 | DVHPNRES ---
Progress Note Date Seen: Nov 12, 2024 Resident Creating Document: JESU MEHTA RESIDENT Medical Necessity Reason Pt with a Central, PICC or Fol: No Subjective Review of Systems The patient is an 79-year-old male with a past medical history of diabetes mellitus, hyperlipidemia , and a pacemaker, who presented to the Emergency Department for evaluation of frequent falls at home. The patient reports an increased frequency of falls over the past few days, accompanied by generalized weakness and difficulty holding onto objects, resulting in him dropping items from his arms. He states he never lost consciousness during these episodes. The patient mentions a history of an episode of weakness leading to one of the falls. He has a known history of myoclonic seizures. 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 Additionally, his recent HbA1c was noted to be elevated. He is currently being managed by nephrology due to an elevated creatinine level, suggesting acute kidney injury superimposed on chronic kidney disease. On examination, the patient appears stable and denies any acute symptoms, including chest pain, headache, dizziness, or changes in mental status. Past Medical History: Diabetes mellitus Hyperlipidemia Myoclonic seizures Pacemaker insertion CKD Past Surgical History: Pacemaker placement Family History: No significant contributions to the management of this case. Social History: The patient lives at home. Denies smoking, alcohol use, or illicit drug use. Review of systems Constitutional: Yes: Weakness, No: Fever, Chills, Sweats Eyes: No: Pain, Vision change, Conjunctivae inflammation, Eyelid inflammation, Other, Redness ENT: No: Ear pain, Ear discharge, Nose pain, Nose discharge, Nose congestion, Mouth pain, Mouth swelling, Throat pain, Throat swelling, Other Respiratory: No Wheezing, Hemoptysis, Pleuritic Pain, Sputum, Wheezing, Other Cardiovascular: No: Chest Pain, Palpitations, Orthopnea, Paroxysmal Noc. Dyspnea, Edema, Lt Headedness, Other Gastrointestinal: No: Nausea, Vomiting, Abdominal Pain, Diarrhea, Constipation, Melena, Hematochezia, Other Musculoskeletal: No: other, neck pain, shoulder pain, arm pain, back pain, hand pain, leg pain, foot pain Neurological:; No: Weakness, Numbness,Change in speech, Confusion, Seizures Patient reports: No new complaints Objective vital signs Vital Sign Date Time Temp Pulse Resp B/P (MAP) Pulse Ox O2 Delivery O2 Flow Rate FiO2 11/12/24 09:00 98.0 60 18 135/63 (87) 94 98.0 11/12/24 07:45 Room Air* 0 21 Total Intake and Output 11/11/24 11/11/24 11/12/24 15:00 23:00 07:00 Intake Total 200 ml Output Total 1400 ml Balance -1200 ml medications Current Medications Medications Dose Ordered Sig/Lisbet Route Start Time Stop Time Status Last Admin Dose Admin Famotidine 20 mg DAILY IV 11/12/24 10:00 11/12/24 09:06 20 MG Aspirin 81 mg DAILY PO 11/12/24 10:00 11/12/24 09:06 81 MG Diagnostic Test (Pha) 1 strip ACHS 11/11/24 22:00 11/12/24 05:18 1 STRIP Insulin Human Regular HS SC 11/11/24 22:00 Insulin Human Regular AC SC 11/12/24 07:00 Dextrose 50 ml UD PRN IV 11/11/24 20:00 Sodium Chloride 1,000 ml @ 60 mls/hr [id number] IV 11/11/24 20:00 11/11/24 21:34 60 MLS/HR Acetaminophen/ Hydrocodone Bitart 1 tab Q4HP PRN PO 11/11/24 20:00 Ondansetron HCl 4 mg Q4HP PRN IV 11/11/24 20:00 Docusate Sodium 100 mg BIDPRN PRN PO 11/11/24 20:00 Acetaminophen 650 mg Q6HP PRN PO 11/11/24 20:00 Hydralazine HCl 10 mg Q6HP PRN IV 11/11/24 20:00 Atorvastatin Calcium 10 mg HS PO 11/11/24 22:00 Nitroglycerin 0.4 mg Q5MINP PRN SL 11/11/24 22:30 Morphine Sulfate 2 mg Q30M PRN IV 11/11/24 22:30 Examination Examination General Appearance: Frail appearance, Alert, Oriented X3, Cooperative, No acute distress Respiratory: Clear to auscultation, Normal air movement Cardiovascular: Regular rate, Normal S1, Normal S2 Abdominal: Normal bowel sounds Extremities: No cyanosis, No edema, Normal pulses, No tenderness/swelling Skin: No rashes, No breakdown Neuro: Normal speech, Strength at 5/5 X4 ext, Normal tone, Sensation intact, Cranial nerves 3-12 NL, Reflexes 2+ Psych/Mental Status: Mental status NL, Mood NL laboratory and microbiology Laboratory Tests 11/12/24 04:39 Test 11/12/24 04:39 Range/Units Serum Glucose 86 # 74-106 mg/dL Problem List/Assessment/Plan Problem List/Assessment/Plan Presyncope likely due to dehydration? Electrolyte imbalances? Heart failure with a reduced ejection fraction 15 % BNP 800 -echocardiogram is pending -cardiology consult, pending Acute kidney injury on chronic kidney disease stage IV, creatinine 2.22, GFR 29 -nephrology on board -Castro catheter -kidney ultrasound, pending - blood pressure control Anemia of chronic kidney disease, normocytic normochromic, hemoglobin 10.2 -nephrology on board Diabetes mellitus with hyperglycemia, hemoglobin A1c 8.6 -insulin regular protocol -dextrose 50 mL protocol History of pacemaker implantation -aspirin 81 mg Atorvastatin 10 mg p.o. Secondary hypertension likely due to chronic kidney disease -hydralazine 10 mg q.6 p.r.n. -monitor Mild hypocalcemia, resolved Case discussed with Dr. Alexander Goals of care discussed with the patient for 31 minutes Code status: Full code Plan discussed with: Patient, Spouse My Orders My Orders Orders - JESU MEHTA RESIDENT Procedure Category Date Status Time Drug Screen LAB 11/12/24 Logged 09:36 Vitamin B12 LAB 11/12/24 In Process 09:36 Folate (Folic Acid) LAB 11/12/24 In Process 09:36 Prothrombin Time W/ LAB 11/12/24 In Process INR 09:36 Covid19 Antigen Yani LAB 11/12/24 Logged Rapid Influenza A&B LAB 11/12/24 Logged 09:36 Pt Request For Service PT 11/12/24 Logged 09:36 Orthostatic Vital ORDERS 11/12/24 Transmitted Signs 09:[address] 11/12/24 Resulted 09:36 Carotid Duplx W Color US 11/12/24 Taken DOP 09:36 Date of Service: Nov 12, 2024 Billing Provider: ELIAS ALEXANDER MD Common Visit Codes: 28673-[id number] INP/OBS CARE(HIGH) Secondary Visit Codes: 67454-IJAGCJIA CARE PLAN 30 MINUTES JESU MEHTA RESIDENT Nov 12, 2024 11:47 ELIAS ALEXANDER MD Nov 14, 2024 20:34
[2024-11-12 12:00] LABS: INR 1.09 (0.9-1.15); Prothrombin Time 11.5 sec (9.3-11.8)
[2024-11-12] MEDS ORDERED: CARV3.1240 PO (12:24)
[2024-11-12] MEDS ORDERED: GABA-1250 PO (12:24)
[2024-11-12] MEDS ORDERED: HYDR1TAB97 PO (12:24)
[2024-11-12] MEDS ORDERED: ASPI-325 PO (12:24)
[2024-11-12] MEDS ORDERED: CLOP75TA70 PO (12:24)
[2024-11-12] MEDS ORDERED: FOLI-119 PO (12:24)
[2024-11-12] MEDS ORDERED: FERR325T20 PO (12:24)
[2024-11-12] MEDS ORDERED: ATOR40TA52 PO (12:24)
[2024-11-12] MEDS ORDERED: PANT40T PO (12:24)
--- NOTE | 2024-11-12 12:32 | DVHSR ---
APPROVED REPORT EXAM: Two-dimensional and M-mode echocardiogram with Doppler and color Doppler. Blood Pressure: 135/63 mmHg INDICATION Cardiac delineation Surgery/Intervention Pacemaker: RISK [employer]CTORS Height: 5'7", Weight: 141 DIMENSIONS LVDd5.9 (3.8-5.7cm)LA (2D)4.4 (1.9-4.0cm)Aortic Root3.6 (2.0-3.7cm) LVDs5.5 (2.5-4.0cm)LA (MM) (1.9-4.0cm)Aortic Cusp Exc1.2 (1.5-2.0cm) EF (%) 15.0 (55-70%)Rt. Atrium4.4 (1.9-4.0cm)Asc. Aorta cm IVSd1.1 (0.7-1.1cm)RV (D)3.8 (1.8-2.4cm) PWd1.0 (0.7-1.1cm) Mitral Valve MitralMitral Stenosis E wave0.41m/sMV Mean GR.mmHg A wave1.09m/sMV Peak GR.mmHg E/A ratio0.42D MVAcm2 DECEL [id number] 1/2 Timems Aortic Valve Aortic ValveAortic Stenosis V10.97m/Lilliana Mean GR.3mmHg V21.20m/Lilliana Peak GR.6mmHg LVOT Diameter2.2 (1.8-2.4cm)Doppler AVA3.07cm2 Pulmonic Valve V20.86m/s Tricuspid Valve TR Velocity2.83m/s [id number] Conclusion MODERATELY DILATED LV SEVERE LV GLOBAL HYPOKINESIS LV EJECTION FRACTION IS 15% AND IS REMARKABLY REDUCED HEAVILY CALCIFIED AORTIC LEAFLETS DILATED RV AND RA NO EFFUSION NORMAL MV,TV AND PV
--- NOTE | 2024-11-12 14:00 | DVH ---
CAROTID DOPPLER ULTRASOUND HISTORY: ro stroke COMPARISON: None TECHNIQUE: Real time montgomery scale, color Doppler, and spectral duplex images are obtained through the c arotid and vertebral arteries. Findings: Peak systolic velocity right internal carotid artery is 107 cm/s and right common carotid artery is 5 0 cm/s. Ratio is 2.1. Antegrade flow noted in right vertebral artery. Mild to moderate atheroscleroti c plaque noted within the right carotid arterial system. Peak systolic velocity left internal carotid artery is 114 cm/s and left common carotid artery is 65 cm/s. Ratio is 1.8. Antegrade flow noted in left vertebral artery. Mild atherosclerotic plaque noted within the left carotid arterial system. Impression: 1. No evidence of hemodynamically significant stenosis within the bilateral carotid arterial systems. 2. Antegrade flow within bilateral vertebral arteries.
--- NOTE | 2024-11-12 14:04 | DVH ---
EXAM: US KIDNEY INDICATION: smai TECHNIQUE: Multiple real-time sonographic images of the kidneys and bladder were obtained. COMPARISON: None Findings: Right kidney measures 9.1 cm with normal contours, increased echotexture, and normal cortical thickne ss. No evidence of hydronephrosis, calculi, or solid lesions. Left kidney measures 9.1 cm with normal contours, increased echotexture, and cortical thickness. No e vidence of hydronephrosis, calculi, or solid lesions. Bilateral anechoic lesions the largest measures 4.2 x 3.9 x 3.3 cm on the right and 5.9 x 5.8 x 4.3 c m on the left. Urinary bladder is unremarkable without evidence of abnormal wall thickening, mass, or calculi. Prevo id volume 1004 mL. Postvoid volume not obtained due to patient's inability to void. Impression: 1. Increased echogenicity of bilateral kidneys. Correlate for medical renal disease. 2. Bilateral renal cysts. 3. Distended urinary bladder.
[2024-11-12 17:56] LABS: Urine Bacteria None Seen /hpf (None Seen)
[2024-11-12 18:10] LABS: COVID19 ANTIGEN SOFIA FIA NEGATIVE (NEGATIVE)
[2024-11-12 18:11] LABS: Rapid Influenza A Negative (Negative); Rapid Influenza B Negative (Negative)
[2024-11-12 18:31] LABS: Urine Blood Negative /uL (Negative); Urine Clarity Clear (Clear); Urine Color Light-Yellow (Yellow); Urine Protein, UAD Negative (Negative); Urine Specific Gravity 1.008 (1.001-1.035); Urine Urobilinogen Normal (Negative); Urine WBC <1 /hpf (0 - 3); Urine pH 7.5 (5.0-9.0)
[2024-11-12 18:46] LABS: Amphetamine Screen, Urine Neg (NEGATIVE); Barbiturate Scree,Urine Neg (NEGATIVE); Benzodiazephine Screen, Urine Neg (NEGATIVE); Cannabinoid Screen, Urine Neg (NEGATIVE); Cocaine Screen, Urine Neg (NEGATIVE); Opiate Scree,Urine Neg (NEGATIVE); Phencyclidine Screen, Urine Neg (NEGATIVE)
[2024-11-12 20:11] LABS: Protein, Urine 11.5 mg/dL (1-14)
[2024-11-12 20:13] LABS: Creatinine, Urine 34.55 mg/dL (30.0-125.0); Urine Protein/Creatinine Ratio 0.33
[2024-11-13] VITALS (7 sets, daily range): BP systolic 128–159; BP diastolic 64–93; PULSE 60–65; RESP 17–18; TEMP 97.5–98.3; O2SAT 93–98
--- NOTE | 2024-11-13 00:03 | DVHINCON2 ---
Date of service: Nov 12, 2024 Referring Physician Irma Adhikari Reason for Consultation HfrEF 15% History of Present Illness This is an 79-year-old male with a past medical history of diabetes mellitus, HLD, and seizure who presented to the ED for a complaint of frequent fall at home. Patient reports increased fall for the past few days, generalized weakness, dropping things from his arms without control, getting worse that he decided to come to the ED. WBC 3.1, hemoglobin 9.5, hematocrit 28.6, platelets 168, sodium 139, potassium 4.2, BUN 22, creatinine 2.33, GFR 27, glucose 191, troponin 10. Chest x-ray show cardiomegaly. Patient was admitted to the hospital. I am asked to consult on this patient. Family History: FH: heart attack G8 FATHER, , Age: 60 years and older Allergies: Coded Allergies: Ciprofloxacin (Verified Allergy, Unknown, 11/11/24) Peanut Oil (Verified Allergy, Unknown, 11/11/24) Peanut-containing Drug Products (Verified Allergy, Unknown, 11/11/24) Home Meds Reported Medications Clopidogrel Bisulfate (CLOPIDOGREL) 75 Mg Tab, 1 TAB PO DAILY 11/12/24 Atorvastatin Calcium (ATORVASTATIN CALCIUM) 40 Mg Tab, 1 TAB PO DAILY 11/12/24 Terazosin Hcl (Hytrin) 5 Mg Cp, 1 CAP PO 11/12/24 Hydrocodone-Acetaminophen (Hydrocodone/Acetaminophen 5-325 mg) 1 Tab Tab, 1 TAB PO BIDPRN PRN for PAIN SCALE 1 THRU 6 11/12/24 Pancreatic Enzymes (VIOKACE) Tab, TAB PO 11/12/24 Folic Acid (Folic Acid) 1 Mg Tab, 1 TAB PO DAILY 11/12/24 Aspirin (Aspirin Low Dose) 81 Mg Tab, 1 TAB PO DAILY 11/12/24 Ferrous Sulfate (Ferosul) 325 Mg Tab, 1 TAB PO QAM 11/12/24 Pantoprazole Sodium Sesquihydr (Pantoprazole Sodium) 40 Mg Tab, 1 TAB PO DAILY 11/12/24 Gabapentin (Gabapentin) 300 Mg Cap, CAP PO 11/12/24 Carvedilol (Carvedilol) 3.125 Mg Tab, 1 TAB PO BID 11/12/24 Current Medications Current Medications Medications (Trade) Dose Ordered Sig/Lisbet Route PRN Reason Start Time Stop Time Status Last Admin Famotidine (Pepcid Injection) 20 mg DAILY IV 11/12/24 10:00 11/12/24 09:06 Aspirin 81 mg DAILY PO 11/12/24 10:00 11/12/24 09:06 Insulin Human Regular (InsuLIN R) AC SC 11/12/24 07:00 11/12/24 12:19 DC Review of Systems Constitutional: denies: chills, diaphoresis, fatigue, fever, malaise, sweats, weakness, others EENTM: denies: blurred vision, double vision, ear bleeding, ear discharge, ear drainage, ear pain, ear ringing, eye pain, eye redness, hearing loss, mouth pain, mouth swelling, nasal discharge, nose bleeding, nose congestion, nose pain, photophobia, tearing, throat pain, throat swelling, voice changes, others Respiratory: denies: cough, hemoptysis, orthopnea, SOB at rest, shortness of breath, SOB with excertion, stridor, wheezing, others Cardiovascular: denies: chest pain, dizzy spells, diaphoresis, Dyspnea on exertion, edema, irregular heart beat, left arm pain, lightheadedness, palpitations, PND, syncope, others Gastrointestinal: denies: abdomen distended, abdominal pain, blood streaked bowels, constipated, diarrhea, dysphagia, difficulty swallowing, hematemesis, melena, nausea, poor appetite, poor fluid intake, rectal bleeding, rectal pain, vomiting, others Genitourinary: denies: burning, dysuria, flank pain, frequency, hematuria, incontinence, penile discharge, penile sore, pain, testicle pain, testicle swelling, urgency, others Neurological: denies: dizziness, fainting, headache, left sided numbness, left sided weakness, numbness, paresthesia, pre-existing deficit, right sided numbness, right sided weakness, seizure, speech problems, tingling, tremors, weakness, others Musculoskeletal: denies: back pain, gout, joint pain, joint swelling, muscle pain, muscle stiffness, neck pain, others Integumetry: denies: bruises, change in color, change in hair/nails, dryness, laceration, lesions, lumps, rash, wounds, others Allergic/Immunocompromised: denies: Difficulty Healing, Frequent Infections, Hives, Itching, others Hematologic/Lymphatic: denies: anemia, blood clots, easy bleeding, easy bruising, swollen glands, others Endocrine: denies: excessive hunger, excessive sweating, excessive thirst, excessive urination, flushing, intolerance to cold, intolerance to heat, unexplained weight gain, unexplained weight loss, others Psychiatric: denies: anxiety, bipolar disorder, depression, hopeless, panic disorder, schizophrenia, sleepless, suicidal, others All Other Systems: Reviewed and Negative Vital Signs Vital Signs Date Time Temp Pulse Resp B/P (MAP) Pulse Ox O2 Delivery O2 Flow Rate FiO2 11/12/24 22:00 98.0 60 17 136/80 (98) 99 98.0 11/12/24 07:45 Room Air* 0 21 Physical Exam GENERAL: Awake,Alert, oriented. LUNGS: Clear. CARDIOVASCULAR: Heart sounds are good ABDOMEN: Soft. Labs/Diagnostic Data Labs Test 11/12/24 13:39 11/12/24 13:29 11/12/24 11:17 11/12/24 05:16 Range/Units Urine Color Light-yellow Yellow Urine Clarity Clear Clear Urine pH 7.5 5.0-9.0 Urine Specific [place] 1.008 1.001-1.035 Urine Protein Negative Negative Urine Ketones Negative Negative Urine Blood Negative Negative /uL Urine Nitrite Negative Negative Urine Bilirubin Negative Negative Urine Urobilinogen Normal Negative mg/dL Urine Leukocyte Esterase Negative Negative /uL Urine RBC 1 0 - 3 /hpf Urine WBC <1 0 - 3 /hpf Urine Squamous Epithelial Cells None seen <5 /hpf Urine Bacteria None seen None Seen /hpf Urine Creatinine 34.55 30.0-125.0 mg/dL Urine Protein/Creatinine Ratio 0.33 Urine Sodium 126 40-220 mmol/L Urine Glucose Normal Normal mg/dL Urine Total Protein 11.5 1-14 mg/dL Urine Opiates Screen Neg NEGATIVE Urine Fentanyl Screen Neg NEGATIVE Urine Barbiturates Screen Neg NEGATIVE Urine Phencyclidine Screen Neg NEGATIVE Urine Amphetamines Screen Neg NEGATIVE Urine Benzodiazepines Screen Neg NEGATIVE Urine Cocaine Screen Neg NEGATIVE Urine Cannabinoids Screen Neg NEGATIVE Influenza Type A Antigen Negative Negative Influenza Type B Antigen Negative Negative SARS-CoV-2 Antigen (Rapid) Negative NEGATIVE Prothrombin Time 11.5 9.3-11.8 sec Prothrombin Time INR 1.09 0.9-1.15 POC Glucose 84 70-106 mg/dl Test 11/12/24 04:39 11/11/24 17:39 11/11/24 14:02 Range/Units White Blood Count 4.0 #L 4.4-10.8 10^3/uL Red Blood Count 3.17 L 4.5-5.90 10^6/uL Hemoglobin 10.2 L 13.5-17.5 g/dL Hematocrit 30.6 L 41.0-53.0 % Mean Corpuscular Volume 96.3 80.0-100.0 fL Mean Corpuscular Hemoglobin 32.1 H 28.0-32.0 pg Mean Corpuscular Hemoglobin Concent 33.3 32.0-36.0 g/dL Red Cell Distribution Width 14.1 11.8-14.3 % Platelet Count 166 140-450 10^3/uL Mean Platelet Volume 8.2 6.9-10.8 fL Neutrophils (%) (Auto) 49.5 37.0-80.0 % Lymphocytes (%) (Auto) 33.4 10.0-50.0 % Monocytes (%) (Auto) 11.5 0.0-12.0 % Eosinophils (%) (Auto) 4.5 0.0-7.0 % Basophils (%) (Auto) 1.1 0.0-2.0 % Neutrophils # (Auto) 2.0 1.6-8.6 10 ^3/uL Lymphocytes # (Auto) 1.3 0.4-5.4 10 ^3/uL Monocytes # (Auto) 0.5 0-1.3 10 ^3/uL Eosinophils # (Auto) 0.2 0-0.8 10 ^3/uL Basophils # (Auto) 0 0-0.2 10 ^3/uL Nucleated Red Blood Cells 0.2 % Sodium Level 143 136-145 mmol/L Potassium Level 4.1 3.5-5.1 mmol/L Chloride Level 105 98-107 mmol/L Carbon Dioxide Level 31 20-31 mmol/L Anion Gap 7 5-15 Blood Urea Nitrogen 19 9-23 mg/dL Creatinine 2.22 H 0.700-1.30 mg/dL Glomerular Filtration Rate Calc 29 >90 mL/min BUN/Creatinine Ratio 8.6 L 10.0-20.0 Serum Glucose 86 # 74-106 mg/dL Hemoglobin A1c 8.6 H <5.7 % A1C Calcium Level 9.0 8.7-10.4 mg/dL Phosphorus Level 4.2 2.4-5.1 mg/dL Magnesium Level 2.3 1.6-2.6 mg/dL Total Bilirubin 0.4 0.2-1.0 mg/dL Aspartate Amino Transferase (AST) 22 13-40 U/L Alanine Aminotransferase (ALT) 15 7-40 U/L Alkaline Phosphatase 103 46-116 U/L Creatine Kinase 51 46-171 U/L Total Protein 6.4 5.7-8.2 g/dL Albumin 3.8 3.2-4.8 g/dL Thyroid Stimulating Hormone (TSH) 0.65 0.55-4.78 uIU/mL Troponin I High Sensitivity 10 </=54 ng/L B-Type Natriuretic Peptide 809.77 0-100 pg/mL Microbiology Date/Time Source Procedure Growth Status 11/12/24 00:00 Nose 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 Complete Assessment Frequent falls. Acute on chronic renal failure. Diabetes mellitus with hyperglycemia. Generalized weakness. Presyncope?. 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 Anemia of chronic kidney disease, normocytic normochromic. History of pacemaker implantation. 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 Plan/Recommendation I agree with your ongoing assessment and care of plan. Echocardiogram. Morphine and Freedom for pain management. Aspirin, Lipitor. Additional plan as per the hospital course. A total of 45 minutes was spent reviewing the patient record, examining the p atient, making a diagnostic and therapeutic plan, discussing this plan with medical personnel, following up on diagnostic studies and following the patient for clinical stability excluding any and all procedures. At least 50% of this time was spent in direct, [id number] contact. Plan discussed with: Patient CHASE PATRICK MD Nov 12, 2024 23:18
[2024-11-13] MEDS ORDERED: cefTRIAXone 1GM/50ML D5W 50 ML IV SCH (03:00)
[2024-11-13 05:55] LABS: Basophils # (auto) 0.1 10 ^3/uL (0-0.2); Basophils % (auto) 1.6 % (0.0-2.0); Eosinophils # (auto) 0.2 10 ^3/uL (0-0.8); Eosinophils % (auto) 3.7 % (0.0-7.0); Hematocrit 30.8 % (41.0-53.0); Hemoglobin 10.6 g/dL (13.5-17.5); Lymphocytes # (auto) 1.5 10 ^3/uL (0.4-5.4); Lymphocytes % (auto) 36.2 % (10.0-50.0); Mean Corpuscular Hemoglobin 32.9 pg (28.0-32.0); Mean Corpuscular Hgb Conc. 34.2 g/dL (32.0-36.0); Monocytes # (auto) 0.4 10 ^3/uL (0-1.3); Neutrophils # (auto) 1.9 10 ^3/uL (1.6-8.6); Neutrophils % (auto) 47.5 % (37.0-80.0); Platelet Count (auto) 168 10^3/uL (140-450); Red Blood Cells 3.21 10^6/uL (4.5-5.90); Red Cell Distribution Width 13.9 % (11.8-14.3); White Blood Cell 4.1 10^3/uL (4.4-10.8)
[2024-11-13 06:11] LABS: Chloride 105 mmol/L (98-107); Potassium 4.7 mmol/L (3.5-5.1); Sodium 141 mmol/L (136-145)
[2024-11-13 06:12] LABS: Anion Gap 5 (5-15); Carbon Dioxide 31 mmol/L (20-31)
[2024-11-13 06:17] LABS: BUN/Creatinine Ratio 9.5 (10.0-20.0); Blood Urea Nitrogen 23 mg/dL (9-23)
[2024-11-13 06:19] LABS: Glucose 114 mg/dL (74-106)
[2024-11-13 11:00] LABS: Folate (Folic Acid) 41.61 ng/mL (>5.38)
[2024-11-13] MEDS: EMPAGLIFLOZIN 10 MG TAB PO ONE (13:05)
--- NOTE | 2024-11-13 15:13 | DVHPNRES ---
Progress Note Date Seen: Nov 13, 2024 Resident Creating Document: JESU MEHTA RESIDENT Medical Necessity Reason Pt with a Central, PICC or Fol: No Subjective Review of Systems The patient is an 79-year-old male with a past medical history of diabetes mellitus, hyperlipidemia , and a pacemaker, chronic kidney disease, myoclonic seizures, who presented to the Emergency Department for evaluation of frequent falls at home. The patient reports an increased frequency of falls over the past few days, accompanied by generalized weakness and difficulty holding onto objects, resulting in him dropping items from his arms. He states he never lost consciousness during these episodes. The patient mentions a history of an episode of weakness leading to one of the falls. He has a known history of myoclonic seizures. 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 Additionally, his recent HbA1c was noted to be elevated. He is currently being managed by nephrology due to an elevated creatinine level, suggesting acute kidney injury superimposed on chronic kidney disease. On examination, the patient appears stable and denies any acute symptoms, including chest pain, headache, dizziness, or changes in mental status. Recent echocardiogram showed 15 % ejection fraction for which cardiology was consulted. Patient was started on empagliflozin, recent GFR more than 20 for which we will monitor closely. Carvedilol 3.125 also was started . Neurology consult is pending. Patient reports: Feels better Changes from previous H/P or p: Changes Objective vital signs Vital Sign Date Time Temp Pulse Resp B/P (MAP) Pulse Ox O2 Delivery O2 Flow Rate FiO2 11/13/24 13:00 97.7 65 18 151/82 (105) 98 97.7 11/13/24 07:30 Room Air* 0 21 Total Intake and Output 11/12/24 11/12/24 11/13/24 15:00 23:00 07:00 Intake Total 480 ml 1036 ml 440 ml Output Total 1600 ml 875 ml Balance 480 ml -564 ml -435 ml medications Current Medications Medications Dose Ordered Sig/Lisbet Route Start Time Stop Time Status Last Admin Dose Admin Famotidine 20 mg DAILY IV 11/12/24 10:00 11/13/24 09:30 20 MG Aspirin 81 mg DAILY PO 11/12/24 10:00 11/13/24 09:30 81 MG Dextrose 50 ml UD PRN IV 11/11/24 20:00 Acetaminophen/ Hydrocodone Bitart 1 tab Q4HP PRN PO 11/11/24 20:00 Ondansetron HCl 4 mg Q4HP PRN IV 11/11/24 20:00 Docusate Sodium 100 mg BIDPRN PRN PO 11/11/24 20:00 Acetaminophen 650 mg Q6HP PRN PO 11/11/24 20:00 Hydralazine HCl 10 mg Q6HP PRN IV 11/11/24 20:00 Atorvastatin Calcium 10 mg HS PO 11/11/24 22:00 11/12/24 23:07 10 MG Nitroglycerin 0.4 mg Q5MINP PRN SL 11/11/24 22:30 Morphine Sulfate 2 mg Q30M PRN IV 11/11/24 22:30 Ceftriaxone Sodium 50 ml @ 100 mls/hr DAILY@09 IV 11/13/24 03:00 Cancel Carvedilol 3.125 mg Q12HR PO 11/13/24 22:00 Mupirocin 1 applic BID EACHNOSTRI 11/13/24 22:00 11/18/24 21:59 Empaglifozin 10 mg DAILY PO 11/14/24 10:00 Examination: GENERAL:Normal, HEENT:Normal, NECK:Normal, LUNGS:Normal, CVS:Normal, ABDOMEN:Normal, MSK:Normal, SKIN:Normal, NEURO:Normal, :Normal laboratory and microbiology Laboratory Tests 11/13/24 04:51 Test 11/13/24 04:51 Range/Units Serum Glucose 114 H 74-106 mg/dL Microbiology Date/Time Source Procedure Growth Status 11/12/24 00:00 Nose 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 Complete Problem List/Assessment/Plan Problem List/Assessment/Plan Presyncope likely due to dehydration? Electrolyte imbalances? Heart failure with a reduced ejection fraction 15 % BNP 800 - echocardiogram is pending - cardiology consult, pending - carvedilol 3.125 mg bid - Jardiance 10 mg p.o. Acute kidney injury on chronic kidney disease stage IV, creatinine 2.22, GFR 29 - nephrology on board - Castro catheter - kidney ultrasound, pending - blood pressure control Anemia of chronic kidney disease, normocytic normochromic, hemoglobin 10.2 - nephrology on board Diabetes mellitus with hyperglycemia, hemoglobin A1c 8.6 - insulin regular protocol - dextrose 50 mL protocol # history of myoclonic seizures - neurology consult History of pacemaker implantation - aspirin 81 mg - Atorvastatin 10 mg p.o. 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 - monitor Mild hypocalcemia, resolved Case discussed with Dr. Alexander Goals of care discussed with the patient for 31 minutes Code status: Full code Plan discussed with: Patient My Orders My Orders Orders - JESU MEHTA Procedure Category Date Status Time Carvedilol Tablet PHA 11/13/24 In Process (Coreg Tablet) 22:00 Mupirocin 2% Oint PHA 11/13/24 In Process Mrsa Nares (Bactroban 22:00 Empagliflozin PHA 11/14/24 In Process (Jardiance) 10:00 Date of Service: Nov 13, 2024 Billing Provider: ELIAS ALEXANDER MD Common Visit Codes: [id number] INP/OBS CARE(HIGH) JESU MEHTA Nov 13, 2024 15:13 ELIAS ALEXANDER MD Nov 14, 2024 20:35
--- NOTE | 2024-11-13 16:26 | DVHPN2 ---
Progress Note Date Seen: Nov 13, 2024 Medical Necessity Reason Pt with a Central, PICC or Fol: No Objective vital signs Vital Sign Date Time Temp Pulse Resp B/P (MAP) Pulse Ox O2 Delivery O2 Flow Rate FiO2 11/13/24 13:00 97.7 65 18 151/82 (105) 98 97.7 11/13/24 07:30 Room Air* 0 21 Total Intake and Output 11/12/24 11/12/24 11/13/24 15:00 23:00 07:00 Intake Total 480 ml 1036 ml 440 ml Output Total 1600 ml 875 ml Balance 480 ml -564 ml -435 ml medications Current Medications Medications Dose Ordered Sig/Lisbet Route Start Time Stop Time Status Last Admin Dose Admin Famotidine 20 mg DAILY IV 11/12/24 10:00 11/13/24 09:30 20 MG Aspirin 81 mg DAILY PO 11/12/24 10:00 11/13/24 09:30 81 MG Dextrose 50 ml UD PRN IV 11/11/24 20:00 Acetaminophen/ Hydrocodone Bitart 1 tab Q4HP PRN PO 11/11/24 20:00 Ondansetron HCl 4 mg Q4HP PRN IV 11/11/24 20:00 Docusate Sodium 100 mg BIDPRN PRN PO 11/11/24 20:00 Acetaminophen 650 mg Q6HP PRN PO 11/11/24 20:00 Hydralazine HCl 10 mg Q6HP PRN IV 11/11/24 20:00 Atorvastatin Calcium 10 mg HS PO 11/11/24 22:00 11/12/24 23:07 10 MG Nitroglycerin 0.4 mg Q5MINP PRN SL 11/11/24 22:30 Morphine Sulfate 2 mg Q30M PRN IV 11/11/24 22:30 Ceftriaxone Sodium 50 ml @ 100 mls/hr DAILY@09 IV 11/13/24 03:00 Cancel Carvedilol 3.125 mg Q12HR PO 11/13/24 22:00 Mupirocin 1 applic BID EACHNOSTRI 11/13/24 22:00 11/18/24 21:59 Empaglifozin 10 mg DAILY PO 11/14/24 10:00 Examination: GENERAL:Normal, CVS:Normal, NEURO:Normal laboratory and microbiology Laboratory Tests 11/13/24 04:51 Test 11/13/24 04:51 Range/Units Serum Glucose 114 H 74-106 mg/dL Microbiology Date/Time Source Procedure Growth Status 11/12/24 00:00 Nose 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 Complete Problem List/Assessment/Plan Problem List/Assessment/Plan Acute kidney injury superimposed Chronic Kidney Disease secondary hemodynamic mediated Generalized weakness Diabetes mellitus type 2 Hypertension Seizure disorder Anemia of chronic of Kidney disease Closely monitor fluid and electrolytes Avoid nephrotoxic medications Castro catheter continue Strict I&Os sliding scale Blood pressure control Plan discussed with: Patient CHARLES SANTORO MD Nov 13, 2024 16:26
--- NOTE | 2024-11-13 18:28 | DVHINCON2 ---
Date of service: Nov 13, [address] Adhikari Reason for Consultation Seizure History of Present Illness According to zohreh Moeller neurologist has seen the patient 11/11/24 History of Present Illness HPI Comments A 79 year old male brought in by EMS presents to the ED with a chief complaint of increased falls onset 2 days. Patient states he noticed increased falls these past few days, today he felt "jolt" that dropped him to his knees as well as "jolts" through bilateral arms. Patient is also experiencing dizziness. He states he recently had an a change in Gabapentin medication. Past medical history of DM, seizures. Denies chest pain, shortness of breath, nausea, vomiting, diarrhea, abdominal pain, headache. No other symptoms or modifying factors present at this time. UDS, 11/12/2024: Negative Urinalysis, 11/11/2024: Unremarkable WBC/HB/PLT/MCV, 11/13/2024: 4.1/10.6/168/96 Urine/CR, 11/12/2024: 19/2.22, 11/13/2024: 23/2.41 new line HGB A1c, 11/12/2024: 8.6 Liver function tests, 11/12/2020: Normal Vitamin B12, 11/12/2024: 1594 TSH, 11/12/2024: 0.65 CT head, 11/12/2024: No acute intracranial abnormality Bravo, seizure Pacemaker Unknown Smoker: Non-Smoker Alcohol: Denies ETOH Use Drugs: Denies Drug Use Lives In: Home Family History: FH: heart attack G8 FATHER, , Age: 60 years and older Allergies: Coded Allergies: Ciprofloxacin (Verified Allergy, Unknown, 11/11/24) Peanut Oil (Verified Allergy, Unknown, 11/11/24) Peanut-containing Drug Products (Verified Allergy, Unknown, 11/11/24) Home Meds Reported Medications Clopidogrel Bisulfate (CLOPIDOGREL) 75 Mg Tab, 1 TAB PO DAILY 11/12/24 Atorvastatin Calcium (ATORVASTATIN CALCIUM) 40 Mg Tab, 1 TAB PO DAILY 11/12/24 Terazosin Hcl (Hytrin) 5 Mg Cp, 1 CAP PO 11/12/24 Hydrocodone-Acetaminophen (Hydrocodone/Acetaminophen 5-325 mg) 1 Tab Tab, 1 TAB PO BIDPRN PRN for PAIN SCALE 1 THRU 6 11/12/24 Pancreatic Enzymes (VIOKACE) Tab, TAB PO 11/12/24 Folic Acid (Folic Acid) 1 Mg Tab, 1 TAB PO DAILY 11/12/24 Aspirin (Aspirin Low Dose) 81 Mg Tab, 1 TAB PO DAILY 11/12/24 Ferrous Sulfate (Ferosul) 325 Mg Tab, 1 TAB PO QAM 11/12/24 Pantoprazole Sodium Sesquihydr (Pantoprazole Sodium) 40 Mg Tab, 1 TAB PO DAILY 11/12/24 Gabapentin (Gabapentin) 300 Mg Cap, CAP PO 11/12/24 Carvedilol (Carvedilol) 3.125 Mg Tab, 1 TAB PO BID 11/12/24 Current Medications Current Medications Medications (Trade) Dose Ordered Sig/Lisbet Route PRN Reason Start Time Stop Time Status Last Admin Ceftriaxone Sodium 50 ml @ 100 mls/hr DAILY@09 IV 11/13/24 03:00 Cancel Carvedilol (Coreg Tablet) 3.125 mg Q12HR PO 11/13/24 22:00 Mupirocin (Bactroban 2% Ointment) 1 applic BID EACHNOSTRI 11/13/24 22:00 11/18/24 21:59 Empaglifozin (Jardiance) 10 mg DAILY PO 11/14/24 10:00 Vital Signs Vital Signs Date Time Temp Pulse Resp B/P (MAP) Pulse Ox O2 Delivery O2 Flow Rate FiO2 11/13/24 13:00 97.7 65 18 151/82 (105) 98 97.7 11/13/24 07:30 Room Air* 0 21 Labs/Diagnostic Data Labs Test 11/13/24 04:51 11/12/24 13:39 11/12/24 13:29 11/12/24 11:17 Range/Units White Blood Count 4.1 L 4.4-10.8 10^3/uL Red Blood Count 3.21 L 4.5-5.90 10^6/uL Hemoglobin 10.6 L 13.5-17.5 g/dL Hematocrit 30.8 L 41.0-53.0 % Mean Corpuscular Volume 96.0 80.0-100.0 fL Mean Corpuscular Hemoglobin 32.9 H 28.0-32.0 pg Mean Corpuscular Hemoglobin Concent 34.2 32.0-36.0 g/dL Red Cell Distribution Width 13.9 11.8-14.3 % Platelet Count 168 140-450 10^3/uL Mean Platelet Volume 7.9 6.9-10.8 fL Neutrophils (%) (Auto) 47.5 37.0-80.0 % Lymphocytes (%) (Auto) 36.2 10.0-50.0 % Monocytes (%) (Auto) 11.0 0.0-12.0 % Eosinophils (%) (Auto) 3.7 0.0-7.0 % Basophils (%) (Auto) 1.6 0.0-2.0 % Neutrophils # (Auto) 1.9 1.6-8.6 10 ^3/uL Lymphocytes # (Auto) 1.5 0.4-5.4 10 ^3/uL Monocytes # (Auto) 0.4 0-1.3 10 ^3/uL Eosinophils # (Auto) 0.2 0-0.8 10 ^3/uL Basophils # (Auto) 0.1 0-0.2 10 ^3/uL Nucleated Red Blood Cells 0.0 % Sodium Level 141 136-145 mmol/L Potassium Level 4.7 3.5-5.1 mmol/L Chloride Level 105 98-107 mmol/L Carbon Dioxide Level 31 20-31 mmol/L Anion Gap 5 5-15 Blood Urea Nitrogen 23 9-23 mg/dL Creatinine 2.41 H 0.700-1.30 mg/dL Glomerular Filtration Rate Calc 26 >90 mL/min BUN/Creatinine Ratio 9.5 L 10.0-20.0 Serum Glucose 114 H 74-106 mg/dL Calcium Level 9.0 8.7-10.4 mg/dL Urine Color Light-yellow Yellow Urine Clarity Clear Clear Urine pH 7.5 5.0-9.0 Urine Specific [place] 1.008 1.001-1.035 Urine Protein Negative Negative Urine Ketones Negative Negative Urine Blood Negative Negative /uL Urine Nitrite Negative Negative Urine Bilirubin Negative Negative Urine Urobilinogen Normal Negative mg/dL Urine Leukocyte Esterase Negative Negative /uL Urine RBC 1 0 - 3 /hpf Urine WBC <1 0 - 3 /hpf Urine Squamous Epithelial Cells None seen <5 /hpf Urine Bacteria None seen None Seen /hpf Urine Creatinine 34.55 30.0-125.0 mg/dL Urine Protein/Creatinine Ratio 0.33 Urine Sodium 126 40-220 mmol/L Urine Glucose Normal Normal mg/dL Urine Total Protein 11.5 1-14 mg/dL Urine Opiates Screen Neg NEGATIVE Urine Fentanyl Screen Neg NEGATIVE Urine Barbiturates Screen Neg NEGATIVE Urine Phencyclidine Screen Neg NEGATIVE Urine Amphetamines Screen Neg NEGATIVE Urine Benzodiazepines Screen Neg NEGATIVE Urine Cocaine Screen Neg NEGATIVE Urine Cannabinoids Screen Neg NEGATIVE Influenza Type A Antigen Negative Negative Influenza Type B Antigen Negative Negative SARS-CoV-2 Antigen (Rapid) Negative NEGATIVE Prothrombin Time 11.5 9.3-11.8 sec Prothrombin Time INR 1.09 0.9-1.15 Test 11/12/24 05:16 11/12/24 04:39 11/11/24 17:39 11/11/24 14:02 Range/Units POC Glucose 84 70-106 mg/dl Hemoglobin A1c 8.6 H <5.7 % A1C Phosphorus Level 4.2 2.4-5.1 mg/dL Magnesium Level 2.3 1.6-2.6 mg/dL Total Bilirubin 0.4 0.2-1.0 mg/dL Aspartate Amino Transferase (AST) 22 13-40 U/L Alanine Aminotransferase (ALT) 15 7-40 U/L Alkaline Phosphatase 103 46-116 U/L Creatine Kinase 51 46-171 U/L Total Protein 6.4 5.7-8.2 g/dL Albumin 3.8 3.2-4.8 g/dL Vitamin B12 Level 1594 H 211-911 pg/mL Vitamin D 25-Hydroxy 48.0 30.0-100 ng/mL Folic Acid 41.61 >5.38 ng/mL Thyroid Stimulating Hormone (TSH) 0.65 0.55-4.78 uIU/mL Troponin I High Sensitivity 10 </=54 ng/L B-Type Natriuretic Peptide 809.77 0-100 pg/mL Microbiology Date/Time Source Procedure Growth Status 11/12/24 00:00 Nose 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 Complete Plan discussed with: Other ANGELA SANTANA MD Nov 13, 2024 18:28
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
[2024-11-13] MEDS: CARVEDILOL 3.125 MG TAB PO SCH (22:17)
[2024-11-13] MEDS: MUPIROCIN 2% OINT 15gm or 22gm FOR MRSA NARES EACHNOSTRI SCH (22:18)
--- NOTE | 2024-11-13 23:02 | DVHPN2 ---
Progress Note - Dictate Date Seen: Nov 13, 2024 Medical Necessity Reason Pt with a Central, PICC or Fol: No Subjective Patient was seen and evaluated in follow up. No overnight events. Patient denies any complaints. Echocardiogram showed 15 % ejection fraction. Sky Cap 2.41. MRSA returned +. vital signs Vital Sign Date Time Temp Pulse Resp B/P (MAP) Pulse Ox O2 Delivery O2 Flow Rate FiO2 11/13/24 22:17 159/85 11/13/24 21:00 97.5 60 18 93 97.5 11/13/24 07:30 Room Air* 0 21 Total Intake and Output 11/12/24 11/12/24 11/13/24 15:00 23:00 07:00 Intake Total 480 ml 1036 ml 440 ml Output Total 1600 ml 875 ml Balance 480 ml -564 ml -435 ml medications Current Medications Medications Dose Ordered Sig/Lisbet Route Start Time Stop Time Status Last Admin Dose Admin Famotidine 20 mg DAILY IV 11/12/24 10:00 11/13/24 09:30 20 MG Aspirin 81 mg DAILY PO 11/12/24 10:00 11/13/24 09:30 81 MG Dextrose 50 ml UD PRN IV 11/11/24 20:00 Acetaminophen/ Hydrocodone Bitart 1 tab Q4HP PRN PO 11/11/24 20:00 Ondansetron HCl 4 mg Q4HP PRN IV 11/11/24 20:00 Docusate Sodium 100 mg BIDPRN PRN PO 11/11/24 20:00 Acetaminophen 650 mg Q6HP PRN PO 11/11/24 20:00 Hydralazine HCl 10 mg Q6HP PRN IV 11/11/24 20:00 Atorvastatin Calcium 10 mg HS PO 11/11/24 22:00 11/13/24 22:16 10 MG Nitroglycerin 0.4 mg Q5MINP PRN SL 11/11/24 22:30 Morphine Sulfate 2 mg Q30M PRN IV 11/11/24 22:30 Ceftriaxone Sodium 50 ml @ 100 mls/hr DAILY@09 IV 11/13/24 03:00 Cancel Carvedilol 3.125 mg Q12HR PO 11/13/24 22:00 11/13/24 22:17 3.125 MG Mupirocin 1 applic BID EACHNOSTRI 11/13/24 22:00 11/18/24 21:59 11/13/24 22:18 1 APPLIC Empaglifozin 10 mg DAILY PO 11/14/24 10:00 objective GENERAL: Awake,Alert, oriented. LUNGS: Clear. CARDIOVASCULAR: Heart sounds are good ABDOMEN: Soft. laboratory and microbiology Laboratory Tests 11/13/24 04:51 Test 11/13/24 04:51 Range/Units Serum Glucose 114 H 74-106 mg/dL Problem List Frequent falls. Acute on chronic renal failure. Diabetes mellitus with hyperglycemia. Generalized weakness. Presyncope?. 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 Anemia of chronic kidney disease, normocytic normochromic. History of pacemaker implantation. 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 Assessment/Plan Continued all current supportive medical care. Morphine and [place] for pain management. Aspirin, Lipitor. Jardiance. Additional plan as per the hospital course. Plan discussed with: Patient CHASE PATRICK MD Nov 13, 2024 23:02
[2024-11-14 01:00] VITALS: BP 157/92; PULSE 84; RESP 19; TEMP 97.8; O2SAT 100
[2024-11-14 05:00] VITALS: BP 131/83; PULSE 60; RESP 18; TEMP 98; O2SAT 97
[2024-11-14 06:28] LABS: Chloride 104 mmol/L (98-107); Potassium 4.5 mmol/L (3.5-5.1); Sodium 140 mmol/L (136-145)
[2024-11-14 06:29] LABS: Anion Gap 6 (5-15); Carbon Dioxide 30 mmol/L (20-31)
[2024-11-14 06:30] LABS: Calcium 9.3 mg/dL (8.7-10.4)
[2024-11-14 06:34] LABS: BUN/Creatinine Ratio 10.4 (10.0-20.0); Glucose 92 mg/dL (74-106)
[2024-11-14 06:36] LABS: Blood Urea Nitrogen 25 mg/dL (9-23)
[2024-11-14 06:42] LABS: Basophils # (auto) 0.1 10 ^3/uL (0-0.2); Basophils % (auto) 1.2 % (0.0-2.0); Eosinophils # (auto) 0.1 10 ^3/uL (0-0.8); Eosinophils % (auto) 2.9 % (0.0-7.0); Hematocrit 32.8 % (41.0-53.0); Lymphocytes # (auto) 1.8 10 ^3/uL (0.4-5.4); Lymphocytes % (auto) 37.1 % (10.0-50.0); Mean Corpuscular Hemoglobin 32.2 pg (28.0-32.0); Mean Corpuscular Hgb Conc. 33.4 g/dL (32.0-36.0); Mean Corpuscular Volume 96.3 fL (80.0-100.0); Monocytes # (auto) 0.5 10 ^3/uL (0-1.3); Monocytes % (auto) 10.3 % (0.0-12.0); Neutrophils # (auto) 2.3 10 ^3/uL (1.6-8.6); Neutrophils % (auto) 48.5 % (37.0-80.0); Nucleated Red Blood Cells % 0.1 %; Platelet Count (auto) 181 10^3/uL (140-450); Red Cell Distribution Width 14.1 % (11.8-14.3); White Blood Cell 4.8 10^3/uL (4.4-10.8)
[2024-11-14 08:00] VITALS: BP 122/70; PULSE 60; RESP 17; TEMP 97.6; O2SAT 96
[2024-11-14] MEDS: EMPAGLIFLOZIN 10 MG TAB PO SCH (09:37)
--- NOTE | 2024-11-14 13:58 | DVHPN2 ---
Progress Note Date Seen: Nov 14, 2024 Medical Necessity Reason Pt with a Central, PICC or Fol: No Subjective Review of Systems: HEENT:Normal Objective vital signs Vital Sign Date Time Temp Pulse Resp B/P (MAP) Pulse Ox O2 Delivery O2 Flow Rate FiO2 11/14/24 10:40 60 120/68 11/14/24 08:00 17 96 Room Air* 0 21 11/14/24 08:00 97.6 97.6 Total Intake and Output 11/13/24 11/13/24 11/14/24 15:00 23:00 07:00 Intake Total 1000 ml 425 ml 300 ml Output Total 600 ml 975 ml Balance 1000 ml -175 ml -675 ml medications Current Medications Medications Dose Ordered Sig/Lisbet Route Start Time Stop Time Status Last Admin Dose Admin Famotidine 20 mg DAILY IV 11/12/24 10:00 11/14/24 09:35 20 MG Aspirin 81 mg DAILY PO 11/12/24 10:00 11/14/24 09:35 81 MG Dextrose 50 ml UD PRN IV 11/11/24 20:00 Acetaminophen/ Hydrocodone Bitart 1 tab Q4HP PRN PO 11/11/24 20:00 Ondansetron HCl 4 mg Q4HP PRN IV 11/11/24 20:00 Docusate Sodium 100 mg BIDPRN PRN PO 11/11/24 20:00 Acetaminophen 650 mg Q6HP PRN PO 11/11/24 20:00 Hydralazine HCl 10 mg Q6HP PRN IV 11/11/24 20:00 Atorvastatin Calcium 10 mg HS PO 11/11/24 22:00 11/13/24 22:16 10 MG Nitroglycerin 0.4 mg Q5MINP PRN SL 11/11/24 22:30 Morphine Sulfate 2 mg Q30M PRN IV 11/11/24 22:30 Ceftriaxone Sodium 50 ml @ 100 mls/hr DAILY@09 IV 11/13/24 03:00 Cancel Carvedilol 3.125 mg Q12HR PO 11/13/24 22:00 11/14/24 09:36 3.125 MG Mupirocin 1 applic BID EACHNOSTRI 11/13/24 22:00 11/18/24 21:59 11/14/24 09:36 1 APPLIC Empaglifozin 10 mg DAILY PO 11/14/24 10:00 Examination: GENERAL:Normal, HEENT:Normal, CVS:Normal laboratory and microbiology Laboratory Tests 11/14/24 05:36 Test 11/14/24 05:36 Range/Units Serum Glucose 92 74-106 mg/dL Microbiology Date/Time Source Procedure Growth Status 11/12/24 00:00 Nose 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 Complete Problem List/Assessment/Plan Problem List/Assessment/Plan Acute kidney injury superimposed Chronic Kidney Disease secondary hemodynamic mediated Generalized weakness Diabetes mellitus type 2 Hypertension Seizure disorder Anemia of chronic of Kidney disease Closely monitor fluid and electrolytes Avoid nephrotoxic medications Castro catheter continue Strict I&Os sliding scale Blood pressure control renal function stable will sign off the case Plan discussed with: Patient My Orders My Orders Orders - CHARLES SANTORO MD Procedure Category Date Status Time Strict I & O FRANCOISE 11/13/24 In Process 16:12 CHARLES SANTORO MD Nov 14, 2024 13:58
[2024-11-14] MEDS ORDERED: EMPA1TAB PO (14:15)
[2024-11-14] MEDS ORDERED: MUPI2OIN2 EACHNOSTRI (14:15)
[2024-11-14 14:45] VITALS: BP 120/68; PULSE 60; RESP 17; TEMP 36.4; O2SAT 96
--- NOTE | 2024-11-14 17:39 | DVHDSRES ---
Discharge Summary Date of Admission Resident Creating Document: JESU MEHTA RESIDENT Nov 11, 2024 at 22:20 Date of Discharge: Nov 14, 2024 Admitting Diagnosis Generalized weakness Labs/Diagnostic Data: Laboratory Results Test 11/14/24 05:36 11/13/24 22:20 11/12/24 13:39 11/12/24 13:29 White Blood Count 4.8 10^3/uL (4.4-10.8) Red Blood Count 3.40 10^6/uL (4.5-5.90) Hemoglobin 11.0 g/dL (13.5-17.5) Hematocrit 32.8 % (41.0-53.0) Mean Corpuscular Volume 96.3 fL (80.0-100.0) Mean Corpuscular Hemoglobin 32.2 pg (28.0-32.0) Mean Corpuscular Hemoglobin Concent 33.4 g/dL (32.0-36.0) Red Cell Distribution Width 14.1 % (11.8-14.3) Platelet Count 181 10^3/uL (140-450) Mean Platelet Volume 8.3 fL (6.9-10.8) Neutrophils (%) (Auto) 48.5 % (37.0-80.0) Lymphocytes (%) (Auto) 37.1 % (10.0-50.0) Monocytes (%) (Auto) 10.3 % (0.0-12.0) Eosinophils (%) (Auto) 2.9 % (0.0-7.0) Basophils (%) (Auto) 1.2 % (0.0-2.0) Neutrophils # (Auto) 2.3 10 ^3/uL (1.6-8.6) Lymphocytes # (Auto) 1.8 10 ^3/uL (0.4-5.4) Monocytes # (Auto) 0.5 10 ^3/uL (0-1.3) Eosinophils # (Auto) 0.1 10 ^3/uL (0-0.8) Basophils # (Auto) 0.1 10 ^3/uL (0-0.2) Nucleated Red Blood Cells 0.1 % Sodium Level 140 mmol/L (136-145) Potassium Level 4.5 mmol/L (3.5-5.1) Chloride Level 104 mmol/L (98-107) Carbon Dioxide Level 30 mmol/L (20-31) Anion Gap 6 (5-15) Blood Urea Nitrogen 25 mg/dL (9-23) Creatinine 2.40 mg/dL (0.700-1.30) Glomerular Filtration Rate Calc 26 mL/min (>90) BUN/Creatinine Ratio 10.4 (10.0-20.0) Serum Glucose 92 mg/dL (74-106) Calcium Level 9.3 mg/dL (8.7-10.4) POC Glucose 99 mg/dl (70-106) Urine Color Light-yellow (Yellow) Urine Clarity Clear (Clear) Urine pH 7.5 (5.0-9.0) Urine Specific [place] 1.008 (1.001-1.035) Urine Protein Negative (Negative) Urine Ketones Negative (Negative) Urine Blood Negative /uL (Negative) Urine Nitrite Negative (Negative) Urine Bilirubin Negative (Negative) Urine Urobilinogen Normal mg/dL (Negative) Urine Leukocyte Esterase Negative /uL (Negative) Urine RBC 1 /hpf (0 - 3) Urine WBC <1 /hpf (0 - 3) Urine Squamous Epithelial Cells None seen /hpf (<5) Urine Bacteria None seen /hpf (None Seen) Urine Creatinine 34.55 mg/dL (30.0-125.0) Urine Protein/Creatinine Ratio 0.33 Urine Sodium 126 mmol/L (40-220) Urine Glucose Normal mg/dL (Normal) Urine Total Protein 11.5 mg/dL (1-14) Urine Opiates Screen Neg (NEGATIVE) Urine Fentanyl Screen Neg (NEGATIVE) Urine Barbiturates Screen Neg (NEGATIVE) Urine Phencyclidine Screen Neg (NEGATIVE) Urine Amphetamines Screen Neg (NEGATIVE) Urine Benzodiazepines Screen Neg (NEGATIVE) Urine Cocaine Screen Neg (NEGATIVE) Urine Cannabinoids Screen Neg (NEGATIVE) Influenza Type A Antigen Negative (Negative) Influenza Type B Antigen Negative (Negative) SARS-CoV-2 Antigen (Rapid) Negative (NEGATIVE) Test 11/12/24 11:17 11/12/24 04:39 11/11/24 17:39 11/11/24 14:02 Prothrombin Time 11.5 sec (9.3-11.8) Prothrombin Time INR 1.09 (0.9-1.15) Hemoglobin A1c 8.6 % A1C (<5.7) Phosphorus Level 4.2 mg/dL (2.4-5.1) Magnesium Level 2.3 mg/dL (1.6-2.6) Total Bilirubin 0.4 mg/dL (0.2-1.0) Aspartate Amino Transferase (AST) 22 U/L (13-40) Alanine Aminotransferase (ALT) 15 U/L (7-40) Alkaline Phosphatase 103 U/L (46-116) Creatine Kinase 51 U/L (46-171) Total Protein 6.4 g/dL (5.7-8.2) Albumin 3.8 g/dL (3.2-4.8) Vitamin B12 Level 1594 pg/mL (211-911) Vitamin D 25-Hydroxy 48.0 ng/mL (30.0-100) Folic Acid 41.61 ng/mL (>5.38) Thyroid Stimulating Hormone (TSH) 0.65 uIU/mL (0.55-4.78) Troponin I High Sensitivity 10 ng/L (</=54) B-Type Natriuretic Peptide 809.77 pg/mL (0-100) Other Laboratory Tests 11/14/24 05:36 Brief Hx & Hospital Course: HPI 79 year old patient presented with a chief complaint of frequent falls associated with generalized weakness and difficulty holding onto objects. He reported dropping items from his hands but denied loss of consciousness. The patient has a known history of myoclonic seizures, diabetes mellitus, hyperlipidemia, chronic kidney disease (CKD), and heart failure with reduced ejection fraction (HFrEF). Hospital Course: The patient reported multiple falls at home without trauma or head injury. A CT scan of the head was performed, revealing no new or acute infarcts. Neurology was consulted for his known history of myoclonic seizures, and adjustments to his seizure management were deferred to outpatient follow-up. Heart Failure with Reduced Ejection Fraction (EF 15%). Cardiology was consulted, and the patient was started on Carvedilol 3.125 mg PO daily as part of guideline-directed medical therapy (GDMT) for heart failure. He tolerated the medication without significant side effects during his stay.Laboratory findings indicated an elevated creatinine level suggestive of JANI superimposed on CKD. Nephrology was consulted and recommended careful monitoring of kidney function, avoidance of nephrotoxic agents, and optimization of volume status. GFR was noted to be >20 mL/min at discharge. HbA1c was elevated, suggesting poor glycemic control. The patients diabetes management regimen was reviewed, and adjustments will be made in outpatient follow-up with endocrinology.Lipid levels were reviewed, and the patient was advised to continue current statin therapy as part of secondary prevention for cardiovascular disease. Condition at Discharge: The patient was stable at discharge, with no acute symptoms such as chest pain, headache, dizziness, or changes in mental status. He denied any worsening of seizures or new neurologic deficits. He was counseled extensively on the importance of medication adherence, follow-up appointments, and lifestyle modifications. Case discussed with Goals of care discussed with the patient for 33 minutes Operations or Procedures [place] [id number] Ph: [phone] DIAGNOSTIC IMAGING Diagnostic Imaging Report : [id number] Signed PATIENT: ARNALDO ALBRECHT ACCT: [id number] UNIT: [id number] : 1945 LOC: ER ROOM / BED: / AGE / SEX: 79 / M ADM STATUS: REG ER SERVICE 1359 ORDERING PHYSICIAN: ROGER BILLINGSLEY MD PROCEDURE(s): CXRP - CHEST PORTABLE REASON: spasms ORDER NUMBER(s): [id number], ACCESSION NUMBER(s): [id number] EXAM: XY CHEST PORTABLE TECHNIQUE: Single frontal chest radiograph CLINICAL HISTORY: spasms COMPARISON: None Findings/Impression: Frontal chest radiograph demonstrates no acute osseous or superficial soft tissue abnormalities. Left chest wall dual chamber pacemaker. The trachea is midline. Cardiomegaly. No pneumothorax, pleural effusions, or consolidations. ATED BY: SUZAN SLADE DO DICTATED DATE/TIME: 11/11/24 1521 SIGNED BY: SUZAN SLADE DO SIGNED DATE/TIME: 11/11/24 1521 CC: [place] [id number] Ph: [phone] DIAGNOSTIC IMAGING Diagnostic Imaging Report : [id number] Signed PATIENT: ARNALDO ALBRECHT ACCT: [id number] UNIT: [id number] : 1945 LOC: [facility] ROOM / BED: 0279T / A AGE / SEX: 79 / M ADM STATUS: ADM IN SERVICE 0977 ORDERING PHYSICIAN: JESU MEHTA RESIDENT PROCEDURE(s): CARCL - CAROTID DUPLX W COLOR DOP REASON: ro stroke ORDER NUMBER(s): [id number], ACCESSION NUMBER(s): [id number] CAROTID DOPPLER ULTRASOUND HISTORY: ro stroke COMPARISON: None TECHNIQUE: Real time montgomery scale, color Doppler, and spectral duplex images are obtained through the carotid and vertebral arteries. Findings: Peak systolic velocity right internal carotid artery is 107 cm/s and right common carotid artery is 50 cm/s. Ratio is 2.1. Antegrade flow noted in right vertebral artery. Mild to moderate atherosclerotic plaque noted within the right carotid arterial system. Peak systolic velocity left internal carotid artery is 114 cm/s and left common carotid artery is 65 cm/s. Ratio is 1.8. Antegrade flow noted in left vertebral artery. Mild atherosclerotic plaque noted within the left carotid arterial system. Impression: 1. No evidence of hemodynamically significant stenosis within the bilateral carotid arterial systems. 2. Antegrade flow within bilateral vertebral arteries. ATED BY: SUZAN SLADE DO DICTATED DATE/TIME: 11/12/24 1358 SIGNED BY: SUZAN SLADE DO SIGNED DATE/TIME: 11/12/24 1358 CC: [place] [id number] Ph: [phone] DIAGNOSTIC IMAGING Diagnostic Imaging Report : [id number] Signed PATIENT: ARNALDO ALBRECHT ACCT: [id number] UNIT: [id number] : 1945 LOC: [facility] ROOM / BED: [address] [place] [address] A AGE / SEX: 79 / M ADM STATUS: ADM IN SERVICE 5 ORDERING PHYSICIAN: JESU MEHTA PROCEDURE(s): HWOCT - HEAD WITHOUT CONTRAST REASON: ro stroke ORDER NUMBER(s): [id number], ACCESSION NUMBER(s): [id number] CT HEAD WITHOUT CONTRAST INDICATION: ro stroke EXAM DATE: 11/12/2024 09:54 AM COMPARISON: None RADIATION DOSE: CTDIvol: 53.81 mGy, DLP: 862.75 mGy*cm PROCEDURE: CT scans of the head were obtained from the vertex to the skull base. Sagittal and coronal reconstructions were provided. All CT scans at this medical facility are performed using dose modulation techniques as appropriate to a performed exam including the following: Automated exposure control was utilized; adjustment of the MA and/or KV according to patient size; and use of iterative reconstruction technique. FINDINGS: There is sulcal and ventricular prominence. The brain otherwise shows normal morphology and montgomery-white matter differentiation, without intracranial hemorrhage, extra-axial fluid collection, mass effect or acute large vessel infarct.The basal cisterns are patent. The skull and visible facial bones are intact. The paranasal sinuses, mastoid air cells and middle ear cavities are well-aerated. The soft tissues of the scalp are unremarkable. IMPRESSION: No acute intracranial abnormality. ATED BY: ISAIAS AUGUSTE MD DICTATED DATE/TIME: 11/12/24 105 SIGNED BY: ISAIAS AUGUSTE MD SIGNED DATE/TIME: 11/12/241054 CC: [place] [id number] Ph: [phone] DIAGNOSTIC IMAGING Diagnostic Imaging Report : [id number] Signed PATIENT: ARNALDO ALBRECHT ACCT: [id number] UNIT: [id number] : 1945 LOC: [facility] AGE / SEX: 79 / M ADM STATUS: ADM IN SERVICE 1018 ORDERING PHYSICIAN: AC RESENDEZ MD PROCEDURE(s): KIDUS - KIDNEY REASON: jani ORDER NUMBER(s): [id number], ACCESSION NUMBER(s): [id number] EXAM: US KIDNEY INDICATION: jani TECHNIQUE: Multiple real-time sonographic images of the kidneys and bladder were obtained. COMPARISON: None Findings: Right kidney measures 9.1 cm with normal contours, increased echotexture, and normal cortical thickness. No evidence of hydronephrosis, calculi, or solid lesions. Left kidney measures 9.1 cm with normal contours, increased echotexture, and cortical thickness. No evidence of hydronephrosis, calculi, or solid lesions. Bilateral anechoic lesions the largest measures 4.2 x 3.9 x 3.3 cm on the right and 5.9 x 5.8 x 4.3 cm on the left. Urinary bladder is unremarkable without evidence of abnormal wall thickening, mass, or calculi. Prevoid volume 1004 mL. Postvoid volume not obtained due to patient's inability to void. Impression: 1. Increased echogenicity of bilateral kidneys. Correlate for medical renal disease. 2. Bilateral renal cysts. 3. Distended urinary bladder. ATED BY: SUZAN SLADE DO DICTATED DATE/TIME: 11/12/241400 SIGNED BY: SUZAN SLADE DO SIGNED DATE/TIME: 11/12/241400 CC: Condition at Discharge: Fair Final Diagnosis/Problems List Presyncope likely due to low cardiac output due to severely reduced ejection fraction 15%, ?seizure activity Heart failure with a reduced ejection fraction 15 %, not on exacerbation Acute kidney injury on chronic kidney disease stage IV Anemia of chronic kidney disease, normocytic normochromic, hemoglobin 10.2 Diabetes mellitus with hyperglycemia, hemoglobin A1c 8.6 history of myoclonic seizures History of pacemaker implantation Secondary hypertension 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 Patient was counseled about treatment plan, medications, possible side effects, patientverbalized understanding. All questions were answered to the best of my ability. This discharge took greater then 30 minutes in planning, reviewing documentation, counseling the patient, and discussing with other team members." ASSESSMENT ASSESSMENT Assessment Presyncope likely due to seizure activity Heart failure with redured ejection fraction 15 % Chronic kidney disease stage IV Date of Service: Nov 14, 2024 Billing Provider: ELIAS KELLEY MD Common Visit Codes: 21543-EUA/OBS DISCH DAY >30min EJSU MEHTA RESIDENT Nov 14, 2024 17:39 ELIAS KELLEY MD Nov 14, 2024 20:35
--- NOTE | 2024-11-14 23:57 | DVHPN2 ---
Progress Note - Dictate Date Seen: Nov 14, 2024 Medical Necessity Reason Pt with a Central, PICC or Fol: No Subjective Patient was seen and evaluated in follow up. Patient has no new complaints at this time. Patient denies any cardiac symptoms. Patient is cardiac stable for discharge. vital signs Vital Sign Date Time Temp Pulse Resp B/P (MAP) Pulse Ox O2 Delivery O2 Flow Rate FiO2 11/14/24 14:45 36.4 60 17 96 11/14/24 10:40 120/68 11/14/24 08:00 Room Air* 0 21 Total Intake and Output 11/13/24 11/13/24 11/14/24 15:00 23:00 07:00 Intake Total 1000 ml 425 ml 300 ml Output Total 600 ml 975 ml Balance 1000 ml -175 ml -675 ml medications Current Medications Medications Dose Ordered Sig/Lisbet Route Start Time Stop Time Status Last Admin Dose Admin Ceftriaxone Sodium 50 ml @ 100 mls/hr DAILY@09 IV 11/13/24 03:00 Cancel objective GENERAL: Awake,Alert, oriented. LUNGS: Clear. CARDIOVASCULAR: Heart sounds are good ABDOMEN: Soft. laboratory and microbiology Laboratory Tests 11/14/24 05:36 Test 11/14/24 05:36 Range/Units Serum Glucose 92 74-106 mg/dL Problem List Frequent falls. Acute on chronic renal failure. Diabetes mellitus with hyperglycemia. Generalized weakness. Presyncope?. 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 Anemia of chronic kidney disease, normocytic normochromic. History of pacemaker implantation. 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 Assessment/Plan Continued all current supportive medical care. Morphine and [place] for pain management. Aspirin, Lipitor. Jardiance. Additional plan as per the hospital course. Plan discussed with: Patient CHASE PATRICK MD Nov 14, 2024 23:57
== END 2024-11-14 17:15 | disposition home or self-care (01) | DRG 101 ==
LOC: ER 13:55 → EDBD 13:55 → TELE 22:20 → TELE-WESTW 23:20
PROVIDERS: ADMIT Internal Medicine Geriatric Medicine; ATTEND Internal Medicine Geriatric Medicine
DX: G40.409 Other generalized epilepsy and epileptic syndromes, not intractable, without status epilepticus (principal); I13.0 Hypertensive heart and chronic kidney disease with heart failure and stage 1 through stage 4 chronic kidney disease, or unspecified chronic kidney disease; I50.20 Unspecified systolic (congestive) heart failure; N17.9 Acute kidney failure, unspecified; N18.4 Chronic kidney disease, stage 4 (severe); Z20.822 Contact with and (suspected) exposure to COVID-19; R29.6 Repeated falls; D63.1 Anemia in chronic kidney disease; E11.22 Type 2 diabetes mellitus with diabetic chronic kidney disease; E11.65 Type 2 diabetes mellitus with hyperglycemia; I15.9 Secondary hypertension, unspecified; E78.5 Hyperlipidemia, unspecified; G89.29 Other chronic pain; E83.51 Hypocalcemia; Z91.010 Allergy to peanuts; Z88.1 Allergy status to other antibiotic agents; Z82.49 Family history of ischemic heart disease and other diseases of the circulatory system; Z95.0 Presence of cardiac pacemaker; Z79.82 Long term (current) use of aspirin; Z79.899 Other long term (current) drug therapy
CPT/HCPCS: 36415; 70450; 71045; 76775; 80048; 80053; 80307; 81001; 82306; 82550; 82570; 82607; 82746; 82962; 83036; 83735; 83880; 84100; 84156; 84300; 84443; 84484; 85025; 85610; 86850; 86900; 86901; 87081; 87426; 87804; 93005; 93306; 93886; 97110; 97116; 97163; 97530; G0378; J3490